=== PATIENT | female | born 1955 | race Caucasian/White ===

== ENCOUNTER 2016-11-24 17:38 | Inpatient (IN) | payer OTHER ==
[~2016-11-24] VITALS: Ht 152.4 cm; Wt 63.2 kg
[~2016-11-24 17:38] MED LIST: A/B OTIC15 ML; APAP/HYDROCODON1 T13 PO; ASPI-COR81 M3 PO; ASPIR-LOW81 M1; ATROVENT H0.017 MG/1 INH; ATRUD HHN; CIPRO500 MG PO; COL100 PO; COLACE100 MG PO; FLA500 PO; I5; ISORDIL TITRADOS5 MG PO; LAC PO; LEVAQUIN750 MG PO; NORCO1 TA1 PO; NORCO1 TA2 PO; SPIRIVA18 MC1 IH; SPIRIVA18 MC1 INH; TAZTIA XT120 M1; VENTOLIN H0.09 MG/A1 IH; VENTOLIN H0.09 MG/A1 INH; ZES5 PO
[2016-11-24 19:29] LABS: BASOPHIL % 1.1 % (0-2); PLATELET COUNT 228 x10^3mcL (130-400); RED CELL DISTRIBUTION WIDTH 12.6 % (11.5-14.5)
[2016-11-24 19:31] LABS: UA SPECIFIC GRAVITY <=1.005 (1.005-1.035); microscopic required? YES; urine erythrocyte 1+ (NEGATIVE)
[2016-11-24 19:43] LABS: AMPHETAMINE QUAL UR NONE DETECTED (NEG <=1000)
[2016-11-24 19:49] LABS: CALCIUM 7.9 mg/dL (8.5-10.1); CARBON DIOXIDE 21.6 mmol/L (21-32); CHLORIDE SERUM 90 mmol/L (98-107); CREATININE SERUM 0.3 mg/dL (0.6-1.0); GFR1 > 60 mL/min; GLUCOSE SERUM 78 mg/dL (74-106); POTASSIUM SERUM 3.9 mmol/L (3.5-5.1); SODIUM SERUM 125 mmol/L (136-145)
[2016-11-24 19:50] LABS: ALBUMIN 3.7 g/dL (3.4-5.0); ALKALINE PHOSPHATASE 112 U/L (46-116); ALT/SGPT 165 U/L (14-59); AMYLASE 40 U/L (25-115); AST/SGOT 173 U/L (15-37); BILIRUBIN TOTAL 0.33 mg/dL (0.20-1.00); CHOLESTEROL 244 mg/dL (<200); HDL CHOLESTEROL 146 mg/dL (40-60); LIPASE 197 IU/L (73-393); MAGNESIUM 1.8 mg/dL (1.8-2.4); TOTAL PROTEIN, SERUM 7.6 g/dL (6.4-8.2)
[2016-11-24] MEDS ORDERED: ASPIR 8181 MG PO (20:18)
[2016-11-24 21:08] LABS: FREE T4 0.68 ng/dL (0.76-1.46); FREE THYROXINE INDEX 1.8 ug/dL (1.4-4.5); T4(THYROXINE) 4.5 ug/dL (4.7-13.3)
[2016-11-24 21:09] LABS: T3 TOTAL 0.76 ng/mL
[2016-11-24 21:21] VITALS: BP 136/81
[2016-11-24 21:50] VITALS: BP 136/81
[2016-11-24] MEDS ORDERED: ZES10 PO (22:57)
[2016-11-24] MEDS ORDERED: ZES5 PO (22:57)
[2016-11-25 06:32] LABS: BASOPHIL % 0.5 % (0-2); PLATELET COUNT 214 x10^3mcL (130-400); RED CELL DISTRIBUTION WIDTH 12.6 % (11.5-14.5)
[2016-11-25 06:35] VITALS: BP 166/100
[2016-11-25 06:41] LABS: CALCIUM 8.6 mg/dL (8.5-10.1); CARBON DIOXIDE 27.8 mmol/L (21-32); CHLORIDE SERUM 96 mmol/L (98-107); CREATININE SERUM 0.5 mg/dL (0.6-1.0); GFR1 > 60 mL/min; GLUCOSE SERUM 88 mg/dL (74-106); POTASSIUM SERUM 4.4 mmol/L (3.5-5.1); SODIUM SERUM 133 mmol/L (136-145)
[2016-11-25 09:24] VITALS: BP 177/94
[2016-11-25 10:50] VITALS: BP 146/83
[2016-11-25 13:54] VITALS: BP 140/99
[2016-11-25 16:51] VITALS: BP 144/93
[2016-11-25 20:40] VITALS: BP 132/87
[2016-11-26 05:15] VITALS: BP 122/70
[2016-11-26 06:12] LABS: BASOPHIL % 0.5 % (0-2); PLATELET COUNT 208 x10^3mcL (130-400); RED CELL DISTRIBUTION WIDTH 12.9 % (11.5-14.5)
[2016-11-26 06:32] LABS: CALCIUM 9.2 mg/dL (8.5-10.1); CARBON DIOXIDE 26.9 mmol/L (21-32); CHLORIDE SERUM 96 mmol/L (98-107); CREATININE SERUM 0.4 mg/dL (0.6-1.0); GFR1 > 60 mL/min; GLUCOSE SERUM 95 mg/dL (74-106); MAGNESIUM 2.1 mg/dL (1.8-2.4); POTASSIUM SERUM 3.4 mmol/L (3.5-5.1); SODIUM SERUM 131 mmol/L (136-145)
[2016-11-26] MEDS ORDERED: FOL1 PO (09:12)
[2016-11-26] MEDS ORDERED: THI100 PO (09:12)
[2016-11-26] MEDS ORDERED: THERAGRAN-M1 TA4 PO (09:13)
[2016-11-26 09:19] VITALS: BP 157/94
[2016-11-26] MEDS ORDERED: CLEOCIN HCL300 MG PO (09:22)
[2016-11-26] MEDS ORDERED: LEVOFLOXACIN750 M1 PO (09:23)
[2016-11-26 10:07] VITALS: BP 157/94
== END 2016-11-26 12:30 | disposition home or self-care (01) | DRG 137 ==
LOC: ED 17:38 → DU 20:03
PROVIDERS: Emergency Medicine; ADMIT Family Medicine
DX: J69.0 Pneumonitis due to inhalation of food and vomit (principal); G92 Toxic encephalopathy; R45.851 Suicidal ideations; E87.1 Hypo-osmolality and hyponatremia; E87.8 Other disorders of electrolyte and fluid balance, not elsewhere classified; I10 Essential (primary) hypertension; F10.229 Alcohol dependence with intoxication, unspecified; S70.312A Abrasion, left thigh, initial encounter; S70.311A Abrasion, right thigh, initial encounter; S50.812A Abrasion of left forearm, initial encounter; S50.811A Abrasion of right forearm, initial encounter; J44.9 Chronic obstructive pulmonary disease, unspecified; E78.5 Hyperlipidemia, unspecified; E83.51 Hypocalcemia; R74.0 Nonspecific elevation of levels of transaminase and lactic acid dehydrogenase [LDH]; E86.0 Dehydration; I25.10 Atherosclerotic heart disease of native coronary artery without angina pectoris; F40.01 Agoraphobia with panic disorder; F14.90 Cocaine use, unspecified, uncomplicated; F17.210 Nicotine dependence, cigarettes, uncomplicated; F30.2 Manic episode, severe with psychotic symptoms; Y90.9 Presence of alcohol in blood, level not specified; J98.11 Atelectasis; Z53.29 Procedure and treatment not carried out because of patient's decision for other reasons; F10.129 Alcohol abuse with intoxication, unspecified; X83.8XXA Intentional self-harm by other specified means, initial encounter; Y93.89 Activity, other specified; Y92.018 Other place in single-family (private) house as the place of occurrence of the external cause; Z82.49 Family history of ischemic heart disease and other diseases of the circulatory system; Z80.9 Family history of malignant neoplasm, unspecified; Z68.27 Body mass index [BMI] 27.0-27.9, adult; Z88.8 Allergy status to other drugs, medicaments and biological substances
CPT/HCPCS: 83880; 84439; 99406; G0480; J0360; J1956; J2060; J2543; J7030; J7620; Q0092

== ENCOUNTER 2017-01-16 19:11 | Inpatient (IN) | payer OTHER ==
[~2017-01-16] VITALS: Ht 157.5 cm; Wt 65.8 kg
[~2017-01-16 19:11] MED LIST changes: +ASPIR 8181 MG PO; +CLEOCIN HCL300 MG PO; +FOL1 PO; +LEVOFLOXACIN750 M1 PO; +THERAGRAN-M1 TA4 PO; +THI100 PO; +ZES10 PO
[2017-01-16 20:18] LABS: BASOPHIL % 0.6 % (0-2); PLATELET COUNT 333 x10^3mcL (130-400); RED CELL DISTRIBUTION WIDTH 12.7 % (11.5-14.5)
[2017-01-16 20:32] LABS: ALBUMIN 3.4 g/dL (3.4-5.0); ALKALINE PHOSPHATASE 134 U/L (46-116); ALT/SGPT 38 U/L (14-59); AST/SGOT 41 U/L (15-37); BILIRUBIN TOTAL 0.28 mg/dL (0.20-1.00); CALCIUM 8.6 mg/dL (8.5-10.1); CARBON DIOXIDE 26.3 mmol/L (21-32); CHLORIDE SERUM 87 mmol/L (98-107); CHOLESTEROL 151 mg/dL (<200); CREATININE SERUM 0.3 mg/dL (0.6-1.0); GFR1 > 60 mL/min; GLUCOSE SERUM 97 mg/dL (74-106); POTASSIUM SERUM 3.4 mmol/L (3.5-5.1); TOTAL PROTEIN, SERUM 7.6 g/dL (6.4-8.2)
[2017-01-16 20:34] LABS: HDL CHOLESTEROL 98 mg/dL (40-60)
[2017-01-16 20:35] LABS: SODIUM SERUM 123 mmol/L (136-145)
[2017-01-16 20:55] LABS: UA SPECIFIC GRAVITY <=1.005 (1.005-1.035); microscopic required? YES; urine erythrocyte TRACE (NEGATIVE)
[2017-01-16 21:36] LABS: MAGNESIUM 1.6 mg/dL (1.8-2.4); PHOSPHOROUS 3.6 mg/dL (2.5-4.9)
[2017-01-16 22:05] VITALS: BP 104/62
[2017-01-16 22:07] VITALS: BP 107/62
[2017-01-16 22:14] LABS: AMPHETAMINE QUAL UR NONE DETECTED (NEG <=1000)
[2017-01-16 23:38] VITALS: BP 107/62
[2017-01-17 05:12] LABS: PLATELET COUNT 326 x10^3mcL (130-400); RED CELL DISTRIBUTION WIDTH 12.6 % (11.5-14.5)
[2017-01-17 05:16] LABS: CALCIUM 8.1 mg/dL (8.5-10.1); CARBON DIOXIDE 23.7 mmol/L (21-32); CHLORIDE SERUM 93 mmol/L (98-107); CREATININE SERUM 0.3 mg/dL (0.6-1.0); GFR1 > 60 mL/min; GLUCOSE SERUM 127 mg/dL (74-106); MAGNESIUM 1.5 mg/dL (1.8-2.4); POTASSIUM SERUM 4.2 mmol/L (3.5-5.1); SODIUM SERUM 129 mmol/L (136-145)
[2017-01-17 05:17] LABS: BASOPHIL % 0 % (0-2)
[2017-01-17 06:05] VITALS: BP 115/62
[2017-01-17 07:20] VITALS: BP 143/79
[2017-01-17 14:15] VITALS: BP 144/78
[2017-01-17 18:37] VITALS: BP 159/69
[2017-01-17 21:09] VITALS: BP 148/79
[2017-01-18 04:41] VITALS: BP 140/75
[2017-01-18 06:20] LABS: BASOPHIL % 0.3 % (0-2); CALCIUM 8.4 mg/dL (8.5-10.1); CARBON DIOXIDE 29.5 mmol/L (21-32); CHLORIDE SERUM 98 mmol/L (98-107); CREATININE SERUM 0.3 mg/dL (0.6-1.0); GFR1 > 60 mL/min; GLUCOSE SERUM 93 mg/dL (74-106); MAGNESIUM 1.8 mg/dL (1.8-2.4); PLATELET COUNT 331 x10^3mcL (130-400); POTASSIUM SERUM 3.6 mmol/L (3.5-5.1); RED CELL DISTRIBUTION WIDTH 13.1 % (11.5-14.5); SODIUM SERUM 134 mmol/L (136-145)
[2017-01-18 10:25] VITALS: BP 139/71
[2017-01-18 13:47] VITALS: BP 148/83
[2017-01-18 16:38] VITALS: BP 158/85
[2017-01-18 21:39] VITALS: BP 146/62
[2017-01-18 21:54] VITALS: BP 146/62
[2017-01-19 07:32] LABS: CALCIUM 9.1 mg/dL (8.5-10.1); CARBON DIOXIDE 30.1 mmol/L (21-32); CHLORIDE SERUM 94 mmol/L (98-107); CREATININE SERUM 0.4 mg/dL (0.6-1.0); GFR1 > 60 mL/min; GLUCOSE SERUM 96 mg/dL (74-106); POTASSIUM SERUM 3.6 mmol/L (3.5-5.1); SODIUM SERUM 134 mmol/L (136-145)
[2017-01-19 08:43] VITALS: BP 149/95
[2017-01-19] MEDS ORDERED: LEVOFLOXACIN500 M1 PO (09:46)
[2017-01-19] MEDS ORDERED: CLINDAMYCIN HC150 MG PO (09:47)
[2017-01-19] MEDS ORDERED: PHECLUD PO (09:50)
[2017-01-19] MEDS ORDERED: LAC PO (09:59)
[2017-01-19] MEDS ORDERED: METOPROLOL TART25 M1 PO ×2 (09:59→10:21)
[2017-01-19 10:13] VITALS: BP 149/95
== END 2017-01-19 12:28 | disposition home or self-care (01) | DRG 140 ==
LOC: ED 19:11 → DU 21:00
PROVIDERS: Emergency Medicine; ADMIT Family Medicine
DX: J44.1 Chronic obstructive pulmonary disease with (acute) exacerbation (principal); E87.8 Other disorders of electrolyte and fluid balance, not elsewhere classified; E87.1 Hypo-osmolality and hyponatremia; F10.229 Alcohol dependence with intoxication, unspecified; I10 Essential (primary) hypertension; I25.10 Atherosclerotic heart disease of native coronary artery without angina pectoris; E87.6 Hypokalemia; E83.42 Hypomagnesemia; Z68.26 Body mass index [BMI] 26.0-26.9, adult; F17.210 Nicotine dependence, cigarettes, uncomplicated; M94.0 Chondrocostal junction syndrome [Tietze]
CPT/HCPCS: 83880; 85378; 99406; G0480; J0456; J0696; J2543; J2930; J3475; J7030; J7050; J7613; J7620; J7626; J7644

== ENCOUNTER 2017-01-25 21:42 | Emergency (ER) | payer OTHER ==
[~2017-01-25] VITALS: Ht 157.5 cm; Wt 58.0 kg
[~2017-01-25 21:42] MED LIST changes: +CLINDAMYCIN HC150 MG PO; +LEVOFLOXACIN500 M1 PO; +METOPROLOL TART25 M1 PO; +PHECLUD PO
[2017-01-25 23:00] VITALS: BP 127/53
[2017-01-25 23:09] LABS: BASOPHIL % 0.5 % (0-2); PLATELET COUNT 385 x10^3mcL (130-400); RED CELL DISTRIBUTION WIDTH 13.2 % (11.5-14.5)
[2017-01-25 23:10] LABS: CALCIUM 8.8 mg/dL (8.5-10.1); CARBON DIOXIDE 28.1 mmol/L (21-32); CHLORIDE SERUM 91 mmol/L (98-107); CREATININE SERUM 0.4 mg/dL (0.6-1.0); GFR1 > 60 mL/min; GLUCOSE SERUM 91 mg/dL (74-106); POTASSIUM SERUM 3.8 mmol/L (3.5-5.1); SODIUM SERUM 128 mmol/L (136-145)
[2017-01-25 23:16] LABS: ALBUMIN 3.5 g/dL (3.4-5.0); ALKALINE PHOSPHATASE 107 U/L (46-116); ALT/SGPT 71 U/L (14-59); AST/SGOT 69 U/L (15-37); BILIRUBIN TOTAL 0.24 mg/dL (0.20-1.00); LIPASE 131 IU/L (73-393); TOTAL PROTEIN, SERUM 7.6 g/dL (6.4-8.2); TRIGLYCERIDES 53 mg/dL (<150)
[2017-01-25 23:20] LABS: CHOLESTEROL 223 mg/dL (<200); CHOLESTEROL/HDL RATIO 2.1; HDL CHOLESTEROL 105 mg/dL (40-60)
[2017-01-25 23:51] LABS: FREE T4 0.81 ng/dL (0.76-1.46); FREE THYROXINE INDEX 2.2 ug/dL (1.4-4.5); T4(THYROXINE) 5.7 ug/dL (4.7-13.3)
[2017-01-26 00:04] LABS: T3 TOTAL 0.82 ng/mL
[2017-01-26 00:12] LABS: UA SPECIFIC GRAVITY <=1.005 (1.005-1.035); microscopic required? YES; urine erythrocyte TRACE (NEGATIVE)
[2017-01-26 00:31] LABS: AMPHETAMINE QUAL UR NONE DETECTED (NEG <=1000)
[2017-01-26 02:16] LABS: MAGNESIUM 1.6 mg/dL (1.8-2.4)
== END 2017-01-26 02:22 | disposition left against medical advice (07) ==
LOC: ED 21:42 → DU 01-26 01:16 → ED 01-26 01:16
PROVIDERS: Family Medicine Sports Medicine; Specialist
DX: S09.90XA Unspecified injury of head, initial encounter (principal); F10.129 Alcohol abuse with intoxication, unspecified; I10 Essential (primary) hypertension; J44.9 Chronic obstructive pulmonary disease, unspecified; Z88.8 Allergy status to other drugs, medicaments and biological substances; W17.89XA Other fall from one level to another, initial encounter; Y93.89 Activity, other specified; Y92.89 Other specified places as the place of occurrence of the external cause; Y99.8 Other external cause status
CPT/HCPCS: 36415; 83880; 84439; G0480; J7030

== ENCOUNTER 2017-02-10 21:06 | Emergency (ER) | payer OTHER ==
[~2017-02-10] VITALS: Ht 160 cm; Wt 66.7 kg
[2017-02-10 23:06] VITALS: BP 132/86
== END 2017-02-10 23:07 | disposition home or self-care (01) ==
LOC: ED 21:06
DX: F10.129 Alcohol abuse with intoxication, unspecified (principal); R07.89 Other chest pain; J44.9 Chronic obstructive pulmonary disease, unspecified; I10 Essential (primary) hypertension; Z88.8 Allergy status to other drugs, medicaments and biological substances
CPT/HCPCS: J1885

== ENCOUNTER 2017-02-18 15:23 | Inpatient (IN) | payer OTHER ==
[~2017-02-18] VITALS: Ht 157.5 cm; Wt 59.5 kg
[2017-02-18 16:53] LABS: BASOPHIL % 0.2 % (0-2); PLATELET COUNT 250 x10^3mcL (130-400); RED CELL DISTRIBUTION WIDTH 12.9 % (11.5-14.5)
[2017-02-18 17:07] LABS: CALCIUM 9.5 mg/dL (8.5-10.1); CARBON DIOXIDE 24.7 mmol/L (21-32); CHLORIDE SERUM 95 mmol/L (98-107); CREATININE SERUM 0.8 mg/dL (0.6-1.0); GFR1 > 60 mL/min; GLUCOSE SERUM 115 mg/dL (74-106); POTASSIUM SERUM 3.1 mmol/L (3.5-5.1); SODIUM SERUM 129 mmol/L (136-145)
[2017-02-18 17:15] LABS: ALKALINE PHOSPHATASE 112 U/L (46-116); ALT/SGPT 52 U/L (14-59); AMYLASE 44 U/L (25-115); AST/SGOT 50 U/L (15-37); BILIRUBIN TOTAL 0.76 mg/dL (0.20-1.00); LIPASE 123 IU/L (73-393)
[2017-02-18 17:21] LABS: TOTAL PROTEIN, SERUM 8.3 g/dL (6.4-8.2)
[2017-02-18 18:31] LABS: microscopic required? YES; urine erythrocyte NEGATIVE (NEGATIVE)
[2017-02-18 20:16] LABS: CHOLESTEROL/HDL RATIO 1.8
[2017-02-18 20:17] LABS: T3 TOTAL 1.15 ng/mL
[2017-02-18 20:22] LABS: FREE T4 0.97 ng/dL (0.76-1.46); T4(THYROXINE) 5.8 ug/dL (4.7-13.3)
[2017-02-18 20:56] VITALS: BP 126/73
[2017-02-18 21:45] VITALS: BP 126/73
[2017-02-19 05:54] VITALS: BP 126/73
[2017-02-19 06:03] VITALS: BP 144/91
[2017-02-19 06:57] LABS: BASOPHIL % 0.6 % (0-2); PLATELET COUNT 208 x10^3mcL (130-400)
[2017-02-19 07:06] LABS: CALCIUM 8.3 mg/dL (8.5-10.1); CARBON DIOXIDE 27.2 mmol/L (21-32); CHLORIDE SERUM 99 mmol/L (98-107); CREATININE SERUM 0.4 mg/dL (0.6-1.0); GFR1 > 60 mL/min; GLUCOSE SERUM 70 mg/dL (74-106); MAGNESIUM 1.7 mg/dL (1.8-2.4); POTASSIUM SERUM 3.5 mmol/L (3.5-5.1); SODIUM SERUM 132 mmol/L (136-145)
[2017-02-19 09:30] VITALS: BP 126/68
[2017-02-19 13:20] VITALS: BP 128/66
[2017-02-19 18:40] VITALS: BP 161/90
[2017-02-19 22:01] VITALS: BP 172/78
[2017-02-20 06:04] VITALS: BP 105/68
[2017-02-20 06:53] LABS: AMPHETAMINE QUAL UR NONE DETECTED (NEG <=1000)
[2017-02-20 07:20] LABS: BASOPHIL % 0.9 % (0-2); PLATELET COUNT 240 x10^3mcL (130-400); RED CELL DISTRIBUTION WIDTH 12.8 % (11.5-14.5)
[2017-02-20 07:27] LABS: CALCIUM 8.7 mg/dL (8.5-10.1); CARBON DIOXIDE 27.5 mmol/L (21-32); CHLORIDE SERUM 97 mmol/L (98-107); CREATININE SERUM 0.4 mg/dL (0.6-1.0); GFR1 > 60 mL/min; GLUCOSE SERUM 91 mg/dL (74-106); MAGNESIUM 1.5 mg/dL (1.8-2.4); POTASSIUM SERUM 3.3 mmol/L (3.5-5.1); SODIUM SERUM 133 mmol/L (136-145)
[2017-02-20 09:29] VITALS: BP 149/93
[2017-02-20 16:09] VITALS: BP 132/97
[2017-02-20 21:36] VITALS: BP 149/99
[2017-02-21 06:30] LABS: BASOPHIL % 1.2 % (0-2); PLATELET COUNT 280 x10^3mcL (130-400); RED CELL DISTRIBUTION WIDTH 12.6 % (11.5-14.5)
[2017-02-21 06:38] VITALS: BP 151/79
[2017-02-21 06:47] LABS: CALCIUM 8.8 mg/dL (8.5-10.1); CARBON DIOXIDE 29.9 mmol/L (21-32); CHLORIDE SERUM 96 mmol/L (98-107); CREATININE SERUM 0.4 mg/dL (0.6-1.0); GFR1 > 60 mL/min; GLUCOSE SERUM 86 mg/dL (74-106); MAGNESIUM 1.7 mg/dL (1.8-2.4); POTASSIUM SERUM 3.4 mmol/L (3.5-5.1); SODIUM SERUM 132 mmol/L (136-145)
[2017-02-21 10:12] VITALS: BP 124/81
[2017-02-21] MEDS ORDERED: THI100 PO (11:31)
[2017-02-21] MEDS ORDERED: THERAGRAN-M1 TA4 PO (11:32)
[2017-02-21] MEDS ORDERED: FOL1 PO (11:32)
[2017-02-21] MEDS ORDERED: CIPRO500 MG PO (11:34)
[2017-02-21] MEDS ORDERED: LAC PO (11:34)
[2017-02-21] MEDS ORDERED: METP PO (11:35)
[2017-02-21 11:57] VITALS: BP 124/81
[2017-02-21 13:30] VITALS: BP 148/82
== END 2017-02-21 13:57 | disposition home or self-care (01) | DRG 244 ==
LOC: ED 15:23 → DU 19:24 → MU 19:24 → DU 20:48 → MU 02-19 10:38
PROVIDERS: Emergency Medicine; Family Medicine; ADMIT Family Medicine
DX: K57.33 Diverticulitis of large intestine without perforation or abscess with bleeding (principal); J18.9 Pneumonia, unspecified organism; E87.1 Hypo-osmolality and hyponatremia; J44.0 Chronic obstructive pulmonary disease with (acute) lower respiratory infection; N28.1 Cyst of kidney, acquired; J45.909 Unspecified asthma, uncomplicated; I10 Essential (primary) hypertension; F17.210 Nicotine dependence, cigarettes, uncomplicated; E87.6 Hypokalemia; F31.9 Bipolar disorder, unspecified; F10.20 Alcohol dependence, uncomplicated; N39.0 Urinary tract infection, site not specified; J44.9 Chronic obstructive pulmonary disease, unspecified
CPT/HCPCS: 83880; 84439; 94150; 99406; G0480; J1956; J2270; J2405; J2543; J3010; J3475; J3480; J3490; J7030; J7040; J7620; Q0092; Q9967

== ENCOUNTER 2017-03-09 22:59 | Inpatient (IN) | payer OTHER ==
[~2017-03-09] VITALS: Ht 157.5 cm; Wt 59.1 kg
[~2017-03-09 22:59] MED LIST changes: +METP PO
--- NOTE | 2017-03-09 23:18 | NUR ---
PATIENT WAS BROUGHT IN BY EMS WITH COMPLAINT OF PAIN ON THE LEFT UPPER BACK. PATIENT EXPRESS SHE HAS LUNG PAIN. PATIENT SEEN MOVING ALL EXTREMITIES.
[2017-03-10 00:23] LABS: BASOPHIL % 0.4 % (0-2); PLATELET COUNT 332 x10^3mcL (130-400); RED CELL DISTRIBUTION WIDTH 12.9 % (11.5-14.5)
[2017-03-10 00:45] LABS: ALBUMIN 3.8 g/dL (3.4-5.0); ALKALINE PHOSPHATASE 105 U/L (46-116); ALT/SGPT 41 U/L (14-59); AST/SGOT 44 U/L (15-37); BILIRUBIN TOTAL 0.4 mg/dL (0.20-1.00); CALCIUM 8.7 mg/dL (8.5-10.1); CHLORIDE SERUM 86 mmol/L (98-107); CREATININE SERUM 0.4 mg/dL (0.6-1.0); GFR1 > 60 mL/min; GLUCOSE SERUM 86 mg/dL (74-106); PHOSPHOROUS 3.7 mg/dL (2.5-4.9); POTASSIUM SERUM 4.2 mmol/L (3.5-5.1); TOTAL PROTEIN, SERUM 7.4 g/dL (6.4-8.2); URIC ACID 3.1 mg/dL (2.6-6.0)
--- NOTE | 2017-03-10 00:48 | NUR ---
PATIENT IS SLEEPING. NO DISTRESS.
[2017-03-10 00:49] LABS: CHOLESTEROL 237 mg/dL (<200); HDL CHOLESTEROL 142 mg/dL (40-60)
[2017-03-10 00:50] LABS: SODIUM SERUM 121 mmol/L (136-145)
[2017-03-10 02:21] LABS: MAGNESIUM 1.8 mg/dL (1.8-2.4)
[2017-03-10 02:22] LABS: CHOLESTEROL/HDL RATIO 1.8
--- NOTE | 2017-03-10 02:23 | NUR ---
ADMISSION REPORT GIVEN TO BRYAN CONTRERAS EXT [id number] TO CONTINUE CARE.
[2017-03-10 02:24] LABS: FREE T4 0.84 ng/dL (0.76-1.46)
[2017-03-10 02:25] LABS: FREE THYROXINE INDEX 1.6 ug/dL (1.4-4.5); T4(THYROXINE) 4.2 ug/dL (4.7-13.3)
--- NOTE | 2017-03-10 02:34 | NUR ---
IV BOLUS OF NS INFUSING AT THIS TIME. PT IV SITE PATENT WITH NO SX OF INFILTRATION NOTED.
[2017-03-10 02:56] LABS: T3 TOTAL 0.85 ng/mL
[2017-03-10 03:56] VITALS: BP 98/79
--- NOTE | 2017-03-10 04:16 | NUR ---
ADMITTED A 61 YEARS OLD FEMALE AWAKE, ALERT AND ORIENTED BROUGHT BY ER NURSE VIA GURNEY C/O LOW BACKAPIN, GENRALIZED BODY WEAKNESS AND PAIN TO LEFT CHESTWALL. KEPT IN COMFORT AND ORIENTED TO ROOM AND DEVICES. TELE# 30 NSR ON MONITOR. COARSE CRACKLES NOTED SATTING AT 98% RA. IV TO RH INTACT AND INFUSING WELL. WITH ADMISSION ORDERS FROM DR VERMA AND TO CARRY OUT. WILL CONTINUE TO MONITOR. CALL LIGHT WITHIN REACH.
[2017-03-10 05:17] VITALS: BP 98/79
--- NOTE | 2017-03-10 05:18 | NUR ---
C/O BACKPAIN MEDICATED WITH NORCO 1 TAB PO PRESCRIBED.
--- NOTE | 2017-03-10 07:13 | NUR ---
PT RECEIVED DURING CHANGE OF SHIFT, A/OX4, TELE 30, NSR, DENIES CHEST PAIN, PULSES PRESENT, NO EDEMA NOTED, DENIES SOB ON RA, BREATHING SHALLOW, COARSE CRACKLES/RONCHI AUSCULATED BILATERALLY, BOWEL SOUNDS ACTIVE, ABLE TO VOID, SPECIMEN CUP AT BEDSIDE, MILD GENERALIZED WEAKNESS, AMBULATORY, SKIN WARM/DRY/INTACT, DENIES PAIN AT THIS TIME, IV TO RIGHT HAND INFUSING NS AT 100ML/HR, CALL LIGHT WITHIN REACH, WILL CONTINUE TO MONITOR.
--- NOTE | 2017-03-10 08:26 | NUR ---
PT DENIES PAIN, C/O SOB, RT AWARE, CALL LIGHT WITHIN REACH, WILL CONTINUE TO MONITOR.
[2017-03-10 08:28] LABS: CALCIUM 8.4 mg/dL (8.5-10.1); CARBON DIOXIDE 26.1 mmol/L (21-32); CHLORIDE SERUM 97 mmol/L (98-107); CREATININE SERUM 0.3 mg/dL (0.6-1.0); GFR1 > 60 mL/min; GLUCOSE SERUM 71 mg/dL (74-106); POTASSIUM SERUM 4.2 mmol/L (3.5-5.1); SODIUM SERUM 131 mmol/L (136-145)
[2017-03-10 09:12] VITALS: BP 137/80
--- NOTE | 2017-03-10 09:12 | NUR ---
DR. MORTENSEN AND RESIDENTS MAKING ROUNDS, PLAN OF CARE DISCUSSED.
--- NOTE | 2017-03-10 10:09 | NUR ---
PT ASLEEP, NO INDICATION OF PAIN, BREATHING EVEN AND UNLABORED, CALL LIGHT WITHIN REACH, WILL CONTINUE TO MONITOR.
--- NOTE | 2017-03-10 11:09 | NUR ---
PT ASLEEP, NO INDICATION OF PAIN, BREATHING EVEN AND UNLABORED, CALL LIGHT WITHIN REACH, WILL CONTINUE TO MONITOR.
--- NOTE | 2017-03-10 12:10 | NUR ---
PT ASLEEP, NO INDICATION OF PAIN, BREATHING EVEN AND UNLABORED, CALL LIGHT WITHIN REACH, WILL CONTINUE TO MONITOR.
--- NOTE | 2017-03-10 13:21 | NUR ---
PT AROUSED FROM SLEEP, DENIES SOB, DENIES PAIN, CALL LIGHT WITHIN REACH, WILL CONTINUE TO MONITOR.
[2017-03-10 13:52] VITALS: BP 156/85
--- NOTE | 2017-03-10 14:20 | NUR ---
PT ASLEEP, NO INDICATION OF PAIN, BREATHING EVEN AND UNLABORED, CALL LIGHT WITHIN REACH, WILL CONTINUE TO MONITOR.
--- NOTE | 2017-03-10 15:07 | NUR ---
PT ASLEEP, NO INDICATION OF PAIN, BREATHING EVEN AND UNLABORED, CALL LIGHT WITHIN REACH, WILL CONTINUE TO MONITOR.
--- NOTE | 2017-03-10 16:25 | NUR ---
PT ASLEEP, NO INDICATION OF PAIN, BREATHING EVEN AND UNLABORED, CALL LIGHT WITHIN REACH, WILL CONTINUE TO MONITOR.
[2017-03-10 16:49] VITALS: BP 151/83
--- NOTE | 2017-03-10 17:14 | NUR ---
PT ASLEEP, NO INDICATION OF PAIN, BREATHING EVEN AND UNLABORED, CALL LIGHT WITHIN REACH, WILL CONTINUE TO MONITOR.
--- NOTE | 2017-03-10 18:32 | NUR ---
PT DENIES SOB, DENIES PAIN, DR. WASSERMAN AT BEDSIDE ASSESSING PT, CALL LIGHT WITHIN REACH, WILL ENDORSE PT TO NEXT SHIFT.
--- NOTE | 2017-03-10 20:29 | NUR ---
PT CURRENTLY RESTING IN BED, NO ACUTE DISTRESS. A/O X4. TELE #30 SHOWING SINUS RHYTHM, DENIES CHEST PAIN. PULSES PALPABLE IN ALL EXTREMITIES, NO EDEMA NOTED. LUNG SOUNDS COARSE CRACKLES BILATERALLY, NO RESPIRATORY DISTRESS NOTED. BOWEL SOUNDS ACTIVE, LAST BM 03/10/17. VOIDING WELL. MILD GENERALIZED WEAKNESS NOTED, AMBULATORY. SKIN INTACT. DENIES PAIN AT THIS TIME. IV PATENT AND INTACT. BED IN LOWEST POSITION, SIDE RAILS UP X2, SCDS IN PLACE, CALL LIGHT WITHIN REACH. WILL CONTINUE TO MONITOR.
[2017-03-10 21:56] VITALS: BP 134/68
--- NOTE | 2017-03-11 01:09 | NUR ---
PT CURRENTLY RESTING IN BED, NO ACUTE DISTRESS. WILL CONTINUE TO MONITOR.
[2017-03-11 02:11] LABS: UA SPECIFIC GRAVITY <=1.005 (1.005-1.035); microscopic required? YES; urine erythrocyte TRACE (NEGATIVE)
[2017-03-11 02:17] LABS: AMPHETAMINE QUAL UR NONE DETECTED (NEG <=1000)
[2017-03-11 05:59] VITALS: BP 147/91
[2017-03-11 06:40] LABS: CALCIUM 9.3 mg/dL (8.5-10.1); CARBON DIOXIDE 26.2 mmol/L (21-32); CHLORIDE SERUM 95 mmol/L (98-107); CREATININE SERUM 0.4 mg/dL (0.6-1.0); GFR1 > 60 mL/min; GLUCOSE SERUM 156 mg/dL (74-106); POTASSIUM SERUM 3.5 mmol/L (3.5-5.1); SODIUM SERUM 132 mmol/L (136-145)
--- NOTE | 2017-03-11 06:42 | NUR ---
PT SLEPT PERIODICALLY THROUGHOUT NIGHT, NO ACUTE DISTRESS. ALL NEEDS MET AND ATTENDED TO. NO SIGNIFICANT CHANGES. IV PATENT AND INTACT. BED IN LOWEST POSITION, SIDE RAILS UP X2, SCDS IN PLACE, CALL LIGHT WITHIN REACH. WILL ENDORSE CARE TO ONCOMING NURSE.
--- NOTE | 2017-03-11 07:41 | NUR ---
PT RECEIVED DURING CHANGE OF SHIFT, ASLEEP BUT AROUSABLE, SZ PRECAUTIONS IN PLACE, TELE 30, NSR, PULSES PRESENT, COARSE/CRACKLES ON 2L NC, BREATHING EVEN AND UNLABORED, BOWEL SOUNDS ACTIVE, ABLE TO VOID, BRP, MILD GENERALIZED WEAKNESS, AMBULATORY, SKIN WARM/DRY/INTACT, NO INDICATION OF PAIN, IV TO RIGHT HAND INFUSING NS AT 100ML/HR, IV WNL, CALL LIGHT WITHIN REACH, WILL CONTINUE TO MONITOR.
--- NOTE | 2017-03-11 08:06 | NUR ---
PT AROUSED FROM SLEEP, DENIES SOB, DENIES PAIN, BP ELEVATED, WILL ADMINISTER BP MEDS SCHEDULED.
--- NOTE | 2017-03-11 09:12 | NUR ---
PT DENIES SOB, DENIES PAIN, MEDICATIONS GIVEN, CALL LIGHT WITHIN REACH, WILL CONTINUE TO MONITOR.
[2017-03-11 09:22] VITALS: BP 185/112
--- NOTE | 2017-03-11 10:47 | NUR ---
DR. SIN AND RESIDENTS MAKING ROUNDS, PLAN OF CARE DISCUSSED.
--- NOTE | 2017-03-11 11:17 | NUR ---
PT DENIES SOB, DENIES PAIN, C/O FEELING "SHAKEY", PT ASSESSED, SLIGHT TREMORS NOTED IN HANDS, WILL MEDICATE PER EMAR, CALL LIGHT WITHIN REACH, WILL CONTINUE TO MONITOR.
--- NOTE | 2017-03-11 12:15 | NUR ---
PT ASLEEP, NO INDICATION OF PAIN, BREATHING EVEN AND UNLABORED, CALL LIGHT WITHIN REACH, WILL CONTINUE TO MONITOR.
--- NOTE | 2017-03-11 13:15 | NUR ---
PT DENIES SOB, DENIES PAIN, RECEIVED SCHEDULED MEDICATION, CALL LIGHT WITHIN REACH, WILL CONTINUE TO MONITOR.
[2017-03-11 13:34] VITALS: BP 165/69
--- NOTE | 2017-03-11 14:10 | NUR ---
PT ASLEEP, NO INDICATION OF PAIN, BREATHING EVEN AND UNLABORED, CALL LIGHT WITHIN REACH, WILL CONTINUE TO MONITOR.
--- NOTE | 2017-03-11 15:17 | NUR ---
PT ASLEEP, NO INDICATION OF PAIN, BREATHING EVEN AND UNLABORED, CALL LIGHT WITHIN REACH, WILL CONTINUE TO MONITOR.
--- NOTE | 2017-03-11 16:20 | NUR ---
PT ASLEEP, NO INDICATION OF PAIN, BREATHING EVEN AND UNLABORED, WILL CONTINUE TO MONITOR.
[2017-03-11 17:04] VITALS: BP 128/71
--- NOTE | 2017-03-11 17:23 | NUR ---
PT DENIES SOB, DENIES PAIN, STATED "I DON'T LIKE RICE AND PORK, I HOPE THEY DON'T BRING ME THAT FOR DINNER."
--- NOTE | 2017-03-11 18:15 | NUR ---
PT DENIES SOB, DENIES PAIN, SLIGHT HAND TREMORS NOTED, WILL MEDICATE PER EMAR.
--- NOTE | 2017-03-11 19:25 | NUR ---
RECEIVED PT FROM PREVIOUS SHIFT NURSE. PT AOX4. TELE #30, NSR. DENIES CP/PRESSURE. PULSES PRESENT, NO EDEMA NOTED. COARSE CRACKLES HEARD IN LUNGS UPON AUSCULTATION, PT SWITCHES FROM RA TO 2L NC. BOWEL SOUNDS ACTIVE. VOISD FREELY, BRP. GENERALIZED WEAKNESS, AMBULATORY. SKIN INTACT. IV IN R. HAND, INTACT AND PATENT. BED IN LOWEST POSITION. CALL LIGHT WITHIN REACH. WILL CONTINUE TO MONITOR.
[2017-03-11 20:51] VITALS: BP 141/79
--- NOTE | 2017-03-12 02:49 | NUR ---
PT RESTING IN BED. RR EVEN AND UNLABORED. NO ACUTE DISTRESS NOTED. CALL LIGHT WITHIN REACH. BED IN LOWEST POSITION. WILL CONTINUE TO MONITOR.
[2017-03-12 05:53] VITALS: BP 157/91
[2017-03-12 06:30] LABS: BASOPHIL % 0.1 % (0-2); CALCIUM 9.1 mg/dL (8.5-10.1); CARBON DIOXIDE 29.1 mmol/L (21-32); CHLORIDE SERUM 96 mmol/L (98-107); CREATININE SERUM 0.3 mg/dL (0.6-1.0); GFR1 > 60 mL/min; GLUCOSE SERUM 141 mg/dL (74-106); MAGNESIUM 1.7 mg/dL (1.8-2.4); PLATELET COUNT 254 x10^3mcL (130-400); POTASSIUM SERUM 3.8 mmol/L (3.5-5.1); RED CELL DISTRIBUTION WIDTH 12.9 % (11.5-14.5); SODIUM SERUM 132 mmol/L (136-145)
--- NOTE | 2017-03-12 07:26 | NUR ---
PT RECEIVED DURING CHANGE OF SHIFT, ASLEEP BUT AROUSABLE, SZ PRECAUTIONS IN PLACE, TELE 30, NSR, PULSES PRESENT, LUNGS COARSE/CRACKLES ON RA, BREATHING EVEN AND UNLABORED, BOWEL SOUNDS ACTIVE, LBM 03/11/17, BRP, MILD GENERALIZED WEAKNESS, AMBULATORY, SKIN WARM/DRY/INTACT, NO INDICATION OF PAIN, IV TO LEFT WRIST INFUSING NS AT 100ML/HR, CALL LIGHT WITHIN REACH, WILL CONTINUE TO MONITOR.
--- NOTE | 2017-03-12 08:11 | NUR ---
PT AROUSED FROM SLEEP, DENIES SOB, DENIES PAIN, MEDS GIVEN, CALL LIGHT WITHIN REACH, WILL CONTINUE TO MONITOR.
--- NOTE | 2017-03-12 09:04 | NUR ---
PT ASLEEP, NO INDICATION OF PAIN, BREATHING EVEN AND UNLABORED, CALL LIGHT WITHIN REACH, WILL CONTINUE TO MONITOR.
[2017-03-12 10:00] VITALS: BP 139/94
--- NOTE | 2017-03-12 10:25 | NUR ---
PT DENIES SOB, DENIES PAIN, CALL LIGHT WITHIN REACH, WILL CONTINUE TO MONITOR.
--- NOTE | 2017-03-12 11:38 | NUR ---
PT AROUSED FROM SLEEP, SPEAKING TO DAUGHTER ON PHONE, CALL LIGHT WITHIN REACH, WILL CONTINUE TO MONITOR.
[2017-03-12] MEDS ORDERED: ATIVAN1 MG PO (11:54)
[2017-03-12 12:05] VITALS: BP 139/94
--- NOTE | 2017-03-12 12:14 | NUR ---
PT AROUSED FROM SLEEP, DENIES SOB, DENIES PAIN, RECEIVED MAG-OX, CALL LIGHT WITHIN REACH, WILL CONTINUE TO MONITOR.
--- NOTE | 2017-03-12 13:12 | NUR ---
PT RECEIVED DISCHARGE INSTRUCTIONS, VERBALIZED UNDERSTANDING, ALL QUESTIONS ANSWERED, SCRIPTS GIVEN, E-SCRIPTS EXPLAINED, NEED TO ARRANGE APPOINTMENT EXPLAINED, PT ESCORTED DOWNSTAIRS VIA WHEELCHAIR BY SEAN OG.
== END 2017-03-12 13:15 | disposition home or self-care (01) | DRG 775 ==
LOC: ED 22:59 → DU 03-10 01:15
PROVIDERS: Emergency Medicine; ADMIT Family Medicine Sports Medicine
DX: F10.20 Alcohol dependence, uncomplicated (principal); G92 Toxic encephalopathy; J18.9 Pneumonia, unspecified organism; M94.0 Chondrocostal junction syndrome [Tietze]; E87.1 Hypo-osmolality and hyponatremia; J44.9 Chronic obstructive pulmonary disease, unspecified; K57.30 Diverticulosis of large intestine without perforation or abscess without bleeding; J98.11 Atelectasis; N28.1 Cyst of kidney, acquired; Z68.23 Body mass index [BMI] 23.0-23.9, adult; F17.210 Nicotine dependence, cigarettes, uncomplicated
CPT/HCPCS: 83880; 84439; G0480; J1956; J2060; J2920; J7030; J7620; J7626; J7633

== ENCOUNTER 2017-04-14 19:18 | Emergency (ER) | payer OTHER ==
[~2017-04-14] VITALS: Ht 160 cm; Wt 55.8 kg
[~2017-04-14 19:18] MED LIST changes: +ATIVAN1 MG PO
[2017-04-14 19:27] VITALS: Ht 160 cm; Wt 55.8 kg
[2017-04-14 20:44] LABS: PLATELET COUNT 307 x10^3mcL (130-400); RED CELL DISTRIBUTION WIDTH 12.3 % (11.5-14.5)
[2017-04-14 20:46] LABS: CALCIUM 9.5 mg/dL (8.5-10.1); CHLORIDE SERUM 94 mmol/L (98-107); CREATININE SERUM 0.5 mg/dL (0.6-1.0); GFR1 > 60 mL/min; GLUCOSE SERUM 126 mg/dL (74-106); SODIUM SERUM 131 mmol/L (136-145)
[2017-04-14 20:47] LABS: BASOPHIL % 0 % (0-2)
[2017-04-14 20:51] LABS: ALKALINE PHOSPHATASE 83 U/L (46-116); ALT/SGPT 30 U/L (14-59); AST/SGOT 24 U/L (15-37); BILIRUBIN TOTAL 0.5 mg/dL (0.20-1.00); TOTAL PROTEIN, SERUM 8.2 g/dL (6.4-8.2)
[2017-04-14 21:15] VITALS: BP 127/71
== END 2017-04-14 21:15 | disposition home or self-care (01) ==
LOC: ED 19:18
PROVIDERS: Emergency Medicine
DX: R10.9 Unspecified abdominal pain (principal); R51 Headache; R11.0 Nausea; J44.9 Chronic obstructive pulmonary disease, unspecified; I10 Essential (primary) hypertension; Z88.8 Allergy status to other drugs, medicaments and biological substances
CPT/HCPCS: 36415; J1100; J1200; J1885; J2765; Q0092

== ENCOUNTER 2017-05-03 10:24 | Inpatient (IN) | payer OTHER ==
[~2017-05-03] VITALS: Ht 160 cm; Wt 56.7 kg
[2017-05-03 10:36] VITALS: Ht 160 cm; Wt 56.7 kg
[2017-05-03 10:51] LABS: BASOPHIL % 0.5 % (0-2); RED CELL DISTRIBUTION WIDTH 11.6 % (11.5-14.5)
[2017-05-03 11:00] LABS: CARBON DIOXIDE 29.3 mmol/L (21-32); CHLORIDE SERUM 90 mmol/L (98-107); CREATININE SERUM 0.5 mg/dL (0.6-1.0); GFR1 > 60 mL/min; GLUCOSE SERUM 98 mg/dL (74-106); POTASSIUM SERUM 4.1 mmol/L (3.5-5.1); SODIUM SERUM 129 mmol/L (136-145)
[2017-05-03 11:04] LABS: ALBUMIN 3.6 g/dL (3.4-5.0); ALKALINE PHOSPHATASE 85 U/L (46-116); ALT/SGPT 26 U/L (14-59); AST/SGOT 28 U/L (15-37); BILIRUBIN TOTAL 0.5 mg/dL (0.20-1.00)
[2017-05-03 11:05] LABS: AMPHETAMINE QUAL UR NONE DETECTED (NEG <=1000)
[2017-05-03 11:15] LABS: PLATELET COUNT 513 x10^3mcL (130-400)
[2017-05-03 13:29] LABS: MAGNESIUM 1.6 mg/dL (1.8-2.4); PHOSPHOROUS 4.7 mg/dL (2.5-4.9)
[2017-05-03 14:37] VITALS: BP 165/87
[2017-05-03 14:40] VITALS: BP 165/87
[2017-05-03 17:27] VITALS: BP 147/74
[2017-05-03 18:16] LABS: microscopic required? NO
[2017-05-03 18:23] VITALS: BP 147/74
[2017-05-03 18:31] LABS: UA SPECIFIC GRAVITY <=1.005 (1.005-1.035); urine erythrocyte NEGATIVE (NEGATIVE)
[2017-05-03] MEDS ORDERED: NORTRIPTYLINE H10 MG PO (19:00)
[2017-05-03] MEDS ORDERED: NALTREXONE HCL50 MG PO (19:01)
[2017-05-03] MEDS ORDERED: PRO40 PO (19:02)
[2017-05-03 20:47] VITALS: BP 129/59
[2017-05-04 05:12] VITALS: BP 151/68
[2017-05-04 06:50] LABS: BASOPHIL % 0.5 % (0-2); PLATELET COUNT 384 x10^3mcL (130-400); RED CELL DISTRIBUTION WIDTH 12.7 % (11.5-14.5)
[2017-05-04 07:16] LABS: CARBON DIOXIDE 26.9 mmol/L (21-32); CHLORIDE SERUM 95 mmol/L (98-107); CREATININE SERUM 0.5 mg/dL (0.6-1.0); GFR1 > 60 mL/min; GLUCOSE SERUM 88 mg/dL (74-106); MAGNESIUM 1.7 mg/dL (1.8-2.4); SODIUM SERUM 132 mmol/L (136-145)
[2017-05-04 09:40] VITALS: BP 139/76
[2017-05-04 13:30] VITALS: BP 133/58
[2017-05-04 18:20] VITALS: BP 140/47
[2017-05-04 21:55] VITALS: BP 136/62
[2017-05-05 05:18] VITALS: BP 157/81
[2017-05-05 07:30] LABS: BASOPHIL % 0.3 % (0-2); CARBON DIOXIDE 30.1 mmol/L (21-32); CHLORIDE SERUM 96 mmol/L (98-107); CREATININE SERUM 0.4 mg/dL (0.6-1.0); GFR1 > 60 mL/min; GLUCOSE SERUM 91 mg/dL (74-106); MAGNESIUM 1.5 mg/dL (1.8-2.4); PHOSPHOROUS 4.5 mg/dL (2.5-4.9); PLATELET COUNT 394 x10^3mcL (130-400); POTASSIUM SERUM 4.7 mmol/L (3.5-5.1); RED CELL DISTRIBUTION WIDTH 12.8 % (11.5-14.5); SODIUM SERUM 133 mmol/L (136-145)
[2017-05-05 10:29] VITALS: BP 132/71
[2017-05-05 18:00] VITALS: BP 142/69
[2017-05-05 22:17] VITALS: BP 149/75
[2017-05-06 05:39] VITALS: BP 174/89
[2017-05-06 07:32] LABS: BASOPHIL % 0.3 % (0-2); PLATELET COUNT 340 x10^3mcL (130-400); RED CELL DISTRIBUTION WIDTH 12.7 % (11.5-14.5)
[2017-05-06 07:43] LABS: CALCIUM 8.7 mg/dL (8.5-10.1); CHLORIDE SERUM 98 mmol/L (98-107); CREATININE SERUM 0.3 mg/dL (0.6-1.0); GFR1 > 60 mL/min; GLUCOSE SERUM 90 mg/dL (74-106); MAGNESIUM 1.9 mg/dL (1.8-2.4); POTASSIUM SERUM 3.6 mmol/L (3.5-5.1); SODIUM SERUM 134 mmol/L (136-145)
[2017-05-06 09:52] VITALS: BP 149/80
[2017-05-06 13:08] VITALS: BP 140/83
[2017-05-06 14:16] VITALS: BP 140/83
[2017-05-06] MEDS ORDERED: COLACE100 MG PO (15:23)
[2017-05-06] MEDS ORDERED: NORCO1 TA2 PO (15:23)
== END 2017-05-06 16:25 | disposition home health service (06) | DRG 342 ==
LOC: ED 10:24 → DU 12:10 → MU 05-04 10:45
PROVIDERS: Emergency Medicine; Family Medicine; Neuromusculoskeletal Medicine, Sports Medicine
PROC: 0PSKXZZ Reposition Right Ulna, External Approach (ICD-10-PCS; 2017-05-05)
PROC: 0PSHXZZ Reposition Right Radius, External Approach (ICD-10-PCS; principal; 2017-05-05 07:30)
DX: S52.611A Displaced fracture of right ulna styloid process, initial encounter for closed fracture (principal); G92 Toxic encephalopathy; E87.1 Hypo-osmolality and hyponatremia; E87.8 Other disorders of electrolyte and fluid balance, not elsewhere classified; E83.42 Hypomagnesemia; I10 Essential (primary) hypertension; S52.511A Displaced fracture of right radial styloid process, initial encounter for closed fracture; F10.129 Alcohol abuse with intoxication, unspecified; J44.9 Chronic obstructive pulmonary disease, unspecified; F60.3 Borderline personality disorder; I25.10 Atherosclerotic heart disease of native coronary artery without angina pectoris; F17.210 Nicotine dependence, cigarettes, uncomplicated; W18.39XA Other fall on same level, initial encounter; Y93.89 Activity, other specified; Y92.018 Other place in single-family (private) house as the place of occurrence of the external cause; Z68.21 Body mass index [BMI] 21.0-21.9, adult; Z88.8 Allergy status to other drugs, medicaments and biological substances; Z80.9 Family history of malignant neoplasm, unspecified; Z82.49 Family history of ischemic heart disease and other diseases of the circulatory system; E86.0 Dehydration
CPT/HCPCS: 76001; 83880; 94150; G0480; J0690; J1644; J1885; J2270; J2405; J2704; J3010; J3490; J7030; J7120; J7620; Q0092

== ENCOUNTER 2017-05-16 22:04 | Inpatient (IN) | payer OTHER ==
[~2017-05-16] VITALS: Ht 160 cm; Wt 68.0 kg
[~2017-05-16 22:04] MED LIST changes: +NALTREXONE HCL50 MG PO; +PRO40 PO
[2017-05-16 22:51] LABS: microscopic required? NO
[2017-05-16 23:01] LABS: BASOPHIL % 0.7 % (0-2); PLATELET COUNT 384 x10^3mcL (130-400); RED CELL DISTRIBUTION WIDTH 13.5 % (11.5-14.5)
[2017-05-16 23:10] LABS: UA SPECIFIC GRAVITY <=1.005 (1.005-1.035); urine erythrocyte NEGATIVE (NEGATIVE)
[2017-05-16 23:15] LABS: ALKALINE PHOSPHATASE 90 U/L (46-116); ALT/SGPT 22 U/L (14-59); AST/SGOT 30 U/L (15-37); BILIRUBIN TOTAL 0.2 mg/dL (0.20-1.00); CALCIUM 8.1 mg/dL (8.5-10.1); CARBON DIOXIDE 23.9 mmol/L (21-32); CHLORIDE SERUM 91 mmol/L (98-107); CREATININE SERUM 0.4 mg/dL (0.6-1.0); GFR1 > 60 mL/min; GLUCOSE SERUM 108 mg/dL (74-106); POTASSIUM SERUM 3.5 mmol/L (3.5-5.1); SODIUM SERUM 125 mmol/L (136-145); TOTAL PROTEIN, SERUM 7.3 g/dL (6.4-8.2)
[2017-05-16 23:16] LABS: AMPHETAMINE QUAL UR NONE DETECTED (NEG <=1000)
[2017-05-16 23:19] LABS: ALBUMIN 3.2 g/dL (3.4-5.0)
[2017-05-17 02:09] VITALS: BP 140/86
[2017-05-17 02:40] LABS: MAGNESIUM 1.7 mg/dL (1.8-2.4); PHOSPHOROUS 3.5 mg/dL (2.5-4.9)
[2017-05-17 02:49] LABS: FREE T4 0.81 ng/dL (0.76-1.46); T3 TOTAL 0.9 ng/mL; T4(THYROXINE) 5.5 ug/dL (4.7-13.3)
[2017-05-17 08:39] VITALS: BP 140/863
[2017-05-17 18:30] VITALS: BP 173/74
[2017-05-17 21:21] VITALS: BP 172/88
[2017-05-18 06:31] VITALS: BP 128/94
[2017-05-18 09:50] VITALS: BP 137/85
[2017-05-18 16:21] LABS: BASOPHIL % 0.7 % (0-2); PLATELET COUNT 375 x10^3mcL (130-400); RED CELL DISTRIBUTION WIDTH 13.8 % (11.5-14.5)
[2017-05-18 16:30] LABS: CALCIUM 9.5 mg/dL (8.5-10.1); CARBON DIOXIDE 26.4 mmol/L (21-32); CHLORIDE SERUM 89 mmol/L (98-107); CREATININE SERUM 0.4 mg/dL (0.6-1.0); GFR1 > 60 mL/min; GLUCOSE SERUM 148 mg/dL (74-106); MAGNESIUM 1.6 mg/dL (1.8-2.4); PHOSPHOROUS 3.3 mg/dL (2.5-4.9); SODIUM SERUM 126 mmol/L (136-145)
[2017-05-18 18:06] VITALS: BP 187/89
[2017-05-18 21:22] VITALS: BP 122/89
[2017-05-19 06:04] VITALS: BP 160/82
[2017-05-19 07:20] LABS: BASOPHIL % 0.5 % (0-2); PLATELET COUNT 302 x10^3mcL (130-400); RED CELL DISTRIBUTION WIDTH 13.8 % (11.5-14.5)
[2017-05-19 07:31] LABS: CARBON DIOXIDE 23.1 mmol/L (21-32); CHLORIDE SERUM 97 mmol/L (98-107); CREATININE SERUM 0.3 mg/dL (0.6-1.0); GFR1 > 60 mL/min; GLUCOSE SERUM 99 mg/dL (74-106); MAGNESIUM 1.7 mg/dL (1.8-2.4); PHOSPHOROUS 4.5 mg/dL (2.5-4.9); POTASSIUM SERUM 3.5 mmol/L (3.5-5.1); SODIUM SERUM 131 mmol/L (136-145)
[2017-05-19] MEDS ORDERED: ZES20 PO (10:08)
[2017-05-19] MEDS ORDERED: ACETAMINOPHEN-H1 TA1 PO (10:09)
[2017-05-19] MEDS ORDERED: PAM25 PO (10:10)
[2017-05-19] MEDS ORDERED: ATI1 PO (10:10)
[2017-05-19] MEDS ORDERED: PROTONIX40 MG/Pac1 PO (10:11)
[2017-05-19 10:15] VITALS: BP 126/94
[2017-05-19] MEDS ORDERED: MAGNESIUM OXID400 MG PO (10:19)
[2017-05-19] MEDS ORDERED: SOD1 PO (10:22)
[2017-05-19 11:35] VITALS: BP 126/94
[2017-05-19] MEDS ORDERED: NORTRIPTYLINE H10 MG PO (11:42)
== END 2017-05-19 11:58 | disposition home or self-care (01) | DRG 775 ==
LOC: ED 22:04 → DU 05-17 00:18 → MU 05-17 00:31 → DU 05-17 00:31 → MU 05-19 07:45
PROVIDERS: Emergency Medicine; Family Medicine
DX: F10.229 Alcohol dependence with intoxication, unspecified (principal); G92 Toxic encephalopathy; R45.851 Suicidal ideations; E87.8 Other disorders of electrolyte and fluid balance, not elsewhere classified; K86.1 Other chronic pancreatitis; E44.1 Mild protein-calorie malnutrition; E87.1 Hypo-osmolality and hyponatremia; F31.32 Bipolar disorder, current episode depressed, moderate; E83.42 Hypomagnesemia; F43.10 Post-traumatic stress disorder, unspecified; F41.0 Panic disorder [episodic paroxysmal anxiety]; I25.10 Atherosclerotic heart disease of native coronary artery without angina pectoris; K57.90 Diverticulosis of intestine, part unspecified, without perforation or abscess without bleeding; J44.9 Chronic obstructive pulmonary disease, unspecified; Y90.0 Blood alcohol level of less than 20 mg/100 ml; I10 Essential (primary) hypertension; F17.210 Nicotine dependence, cigarettes, uncomplicated; Z90.49 Acquired absence of other specified parts of digestive tract; Z88.8 Allergy status to other drugs, medicaments and biological substances; Z98.891 History of uterine scar from previous surgery; I25.2 Old myocardial infarction; Z80.9 Family history of malignant neoplasm, unspecified
CPT/HCPCS: 83880; 84439; G0378; G0480; J1885; J7030; J7620; Q0092

== ENCOUNTER 2017-06-05 22:53 | Emergency (ER) | payer OTHER ==
[~2017-06-05] VITALS: Ht 160 cm; Wt 57.1 kg
[~2017-06-05 22:53] MED LIST changes: +ACETAMINOPHEN-H1 TA1 PO; +ATI1 PO; +MAGNESIUM OXID400 MG PO; +NORTRIPTYLINE H10 MG PO; +PAM25 PO; +PROTONIX40 MG/Pac1 PO; +SOD1 PO; +ZES20 PO
[2017-06-05 23:00] VITALS: Ht 160 cm; Wt 57.1 kg
[2017-06-05 23:39] LABS: PLATELET COUNT 406 x10^3mcL (130-400); RED CELL DISTRIBUTION WIDTH 14.8 % (11.5-14.5)
[2017-06-05 23:49] LABS: CALCIUM 8.5 mg/dL (8.5-10.1); CARBON DIOXIDE 30.4 mmol/L (21-32); CHLORIDE SERUM 91 mmol/L (98-107); CREATININE SERUM 0.5 mg/dL (0.6-1.0); GFR1 > 60 mL/min; GLUCOSE SERUM 86 mg/dL (74-106); POTASSIUM SERUM 4.1 mmol/L (3.5-5.1); SODIUM SERUM 130 mmol/L (136-145)
[2017-06-05 23:54] LABS: ALKALINE PHOSPHATASE 85 U/L (46-116); ALT/SGPT 20 U/L (14-59); AST/SGOT 24 U/L (15-37); BILIRUBIN TOTAL 0.1 mg/dL (0.20-1.00); LIPASE 117 IU/L (73-393); TOTAL PROTEIN, SERUM 7.2 g/dL (6.4-8.2)
[2017-06-05 23:58] LABS: ALBUMIN 3.2 g/dL (3.4-5.0)
[2017-06-06] MEDS ORDERED: QVAR0.08 MG/Ac (00:06)
[2017-06-06] MEDS ORDERED: ASPIRIN ADULT L81 M5 PO (00:06)
[2017-06-06] MEDS ORDERED: VENTOLIN H0.09 MG/A1 (00:06)
[2017-06-06 02:34] LABS: AMPHETAMINE QUAL UR NONE DETECTED (NEG <=1000)
[2017-06-06 03:11] LABS: MAGNESIUM 1.6 mg/dL (1.8-2.4); PHOSPHOROUS 4.1 mg/dL (2.5-4.9)
[2017-06-06 03:23] LABS: CHOLESTEROL/HDL RATIO 2.5
[2017-06-06 03:25] LABS: T3 TOTAL 1.02 ng/mL
[2017-06-06 03:29] LABS: FREE T4 0.96 ng/dL (0.76-1.46); FREE THYROXINE INDEX 1.6 ug/dL (1.4-4.5); T4(THYROXINE) 4.7 ug/dL (4.7-13.3)
[2017-06-06 07:17] LABS: BASOPHIL % 0.8 % (0-2); PLATELET COUNT 361 x10^3mcL (130-400)
[2017-06-06 07:20] LABS: RED CELL DISTRIBUTION WIDTH 14.7 % (11.5-14.5)
[2017-06-06 07:27] LABS: CALCIUM 8.3 mg/dL (8.5-10.1); CHLORIDE SERUM 99 mmol/L (98-107); CREATININE SERUM 0.5 mg/dL (0.6-1.0); GFR1 > 60 mL/min; GLUCOSE SERUM 84 mg/dL (74-106); POTASSIUM SERUM 4.6 mmol/L (3.5-5.1); SODIUM SERUM 137 mmol/L (136-145)
[2017-06-06 10:39] VITALS: BP 140/77
== END 2017-06-06 10:39 | disposition home or self-care (01) ==
LOC: ED 22:53
PROVIDERS: Emergency Medicine; Family Medicine
DX: R10.9 Unspecified abdominal pain (principal); R07.9 Chest pain, unspecified; J18.9 Pneumonia, unspecified organism; J44.9 Chronic obstructive pulmonary disease, unspecified; I10 Essential (primary) hypertension; Z88.6 Allergy status to analgesic agent; Z88.8 Allergy status to other drugs, medicaments and biological substances
CPT/HCPCS: 83880; 84439; G0480; J1644; J1885; J1956; J2270; J2405; J2930; J7030; J7620; Q0092

== ENCOUNTER 2017-12-01 22:19 | Emergency (ER) | payer OTHER ==
[~2017-12-01] VITALS: Ht 152.4 cm; Wt 45.8 kg
[~2017-12-01 22:19] MED LIST changes: +ASPIRIN ADULT L81 M5 PO; +QVAR0.08 MG/Ac; +VENTOLIN H0.09 MG/A1
[2017-12-01 22:24] VITALS: Ht 152.4 cm; Wt 45.8 kg
[2017-12-02 04:27] VITALS: BP 128/86
== END 2017-12-02 04:27 | disposition home or self-care (01) ==
LOC: ED 22:19
DX: S43.402A Unspecified sprain of left shoulder joint, initial encounter (principal); J45.909 Unspecified asthma, uncomplicated; J44.9 Chronic obstructive pulmonary disease, unspecified; I10 Essential (primary) hypertension; Z88.8 Allergy status to other drugs, medicaments and biological substances; Z90.89 Acquired absence of other organs; W17.89XA Other fall from one level to another, initial encounter; Y93.89 Activity, other specified; Y92.89 Other specified places as the place of occurrence of the external cause; Y99.8 Other external cause status

== ENCOUNTER 2017-12-09 20:50 | Inpatient (IN) | payer OTHER ==
[~2017-12-09] VITALS: Ht 160 cm; Wt 47.2 kg
[2017-12-09 20:54] VITALS: Ht 160 cm; Wt 47.2 kg
[2017-12-09 21:42] LABS: BASOPHIL % 0.9 % (0-2); PLATELET COUNT 239 x10^3mcL (130-400); RED CELL DISTRIBUTION WIDTH 12.7 % (11.5-14.5)
[2017-12-09 22:00] LABS: CALCIUM 8.4 mg/dL (8.5-10.1); CARBON DIOXIDE 29.4 mmol/L (21-32); CHLORIDE SERUM 92 mmol/L (98-107); CREATININE SERUM 0.3 mg/dL (0.6-1.0); GFR1 > 60 mL/min; GLUCOSE SERUM 84 mg/dL (74-106); POTASSIUM SERUM 3.9 mmol/L (3.5-5.1); SODIUM SERUM 129 mmol/L (136-145)
[2017-12-09 22:04] LABS: ALKALINE PHOSPHATASE 136 U/L (46-116); ALT/SGPT 15 U/L (14-59); AST/SGOT 31 U/L (15-37); BILIRUBIN TOTAL 0.26 mg/dL (0.20-1.00); TOTAL PROTEIN, SERUM 7.5 g/dL (6.4-8.2)
[2017-12-09 22:34] LABS: UA SPECIFIC GRAVITY <=1.005 (1.005-1.035); microscopic required? YES; urine erythrocyte 1+ (NEGATIVE)
[2017-12-09 22:49] LABS: AMPHETAMINE QUAL UR NONE DETECTED (See below)
[2017-12-10] VITALS (10 sets, daily range): BP systolic 138–162; BP diastolic 90–113
[2017-12-10] MEDS ORDERED: TRAMADOL HCL50 MG (00:39)
[2017-12-10] MEDS ORDERED: ATROVENT H0.017 MG/1 (00:39)
[2017-12-10 02:11] LABS: MAGNESIUM 1.7 mg/dL (1.8-2.4); PHOSPHOROUS 3.9 mg/dL (2.5-4.9)
[2017-12-10 02:21] LABS: FREE T4 0.74 ng/dL (0.76-1.46); FREE THYROXINE INDEX 1.7 ug/dL (1.4-4.5); T3 TOTAL 0.96 ng/mL; T4(THYROXINE) 5.1 ug/dL (4.7-13.3)
[2017-12-10 07:13] LABS: BASOPHIL % 0.2 % (0-2); PLATELET COUNT 215 x10^3mcL (130-400); RED CELL DISTRIBUTION WIDTH 13.1 % (11.5-14.5)
[2017-12-10 07:26] LABS: CALCIUM 8.4 mg/dL (8.5-10.1); CHLORIDE SERUM 98 mmol/L (98-107); CREATININE SERUM 0.3 mg/dL (0.6-1.0); GFR1 > 60 mL/min; GLUCOSE SERUM 78 mg/dL (74-106); MAGNESIUM 1.5 mg/dL (1.8-2.4); PHOSPHOROUS 3.7 mg/dL (2.5-4.9); POTASSIUM SERUM 3.7 mmol/L (3.5-5.1); SODIUM SERUM 135 mmol/L (136-145)
[2017-12-10 08:54] LABS: OSMOLALITY SERUM 278 mOsm/kg (278-298)
[2017-12-11 05:25] VITALS: BP 153/85
[2017-12-11 09:50] VITALS: BP 140/100
[2017-12-11 13:05] VITALS: BP 143/95
[2017-12-11 17:56] VITALS: BP 155/103
[2017-12-11 20:57] VITALS: BP 156/102
[2017-12-12 05:21] VITALS: BP 162/104
[2017-12-12 06:55] LABS: BASOPHIL % 0.3 % (0-2); PLATELET COUNT 197 x10^3mcL (130-400); RED CELL DISTRIBUTION WIDTH 13.3 % (11.5-14.5)
[2017-12-12 07:14] LABS: CALCIUM 8.7 mg/dL (8.5-10.1); CHLORIDE SERUM 99 mmol/L (98-107); CREATININE SERUM 0.3 mg/dL (0.6-1.0); GFR1 > 60 mL/min; GLUCOSE SERUM 94 mg/dL (74-106); MAGNESIUM 1.6 mg/dL (1.8-2.4); PHOSPHOROUS 4.9 mg/dL (2.5-4.9); POTASSIUM SERUM 3.4 mmol/L (3.5-5.1); SODIUM SERUM 133 mmol/L (136-145)
[2017-12-12 08:00] VITALS: BP 180/111
[2017-12-12 09:48] VITALS: BP 138/91
[2017-12-12] MEDS ORDERED: ZES20 PO (11:46)
[2017-12-12 11:54] VITALS: BP 148/99
[2017-12-12] MEDS ORDERED: LEXAPRO10 MG PO (11:58)
[2017-12-12] MEDS ORDERED: FOL1 PO (11:59)
[2017-12-12] MEDS ORDERED: ATIVAN1 MG PO (11:59)
[2017-12-12] MEDS ORDERED: THI100 PO (12:00)
[2017-12-12] MEDS ORDERED: THERA-M CAPLET1 EACH PO (12:00)
[2017-12-12] MEDS ORDERED: MEDDP PO (12:02)
[2017-12-12] MEDS ORDERED: BD LACTINEX1.4 MG PO (12:13)
[2017-12-12] MEDS ORDERED: LEVAQUIN750 MG PO (12:13)
[2017-12-12 13:49] VITALS: BP 148/99
== END 2017-12-12 16:10 | disposition home or self-care (01) | DRG 133 ==
LOC: ED 20:50 → DU 12-10 00:25
PROVIDERS: Emergency Medicine; Internal Medicine
DX: J96.01 Acute respiratory failure with hypoxia (principal); E44.0 Moderate protein-calorie malnutrition; E83.42 Hypomagnesemia; E83.51 Hypocalcemia; R45.851 Suicidal ideations; F10.129 Alcohol abuse with intoxication, unspecified; J44.1 Chronic obstructive pulmonary disease with (acute) exacerbation; N39.0 Urinary tract infection, site not specified; E87.1 Hypo-osmolality and hyponatremia; F17.210 Nicotine dependence, cigarettes, uncomplicated; F31.32 Bipolar disorder, current episode depressed, moderate; I10 Essential (primary) hypertension; Y90.9 Presence of alcohol in blood, level not specified; Z79.82 Long term (current) use of aspirin; Z68.22 Body mass index [BMI] 22.0-22.9, adult; Z88.8 Allergy status to other drugs, medicaments and biological substances; Z90.49 Acquired absence of other specified parts of digestive tract; Z80.9 Family history of malignant neoplasm, unspecified; Z82.49 Family history of ischemic heart disease and other diseases of the circulatory system; Z71.41 Alcohol abuse counseling and surveillance of alcoholic
CPT/HCPCS: 84439; G0480; J0696; J3475; J3490; J7030; J7613; J7620; J7644

== ENCOUNTER 2018-02-21 10:43 | Inpatient (IN) | payer OTHER ==
[~2018-02-21] VITALS: Ht 157.5 cm; Wt 50.6 kg
[~2018-02-21 10:43] MED LIST changes: +ATROVENT H0.017 MG/1; +BD LACTINEX1.4 MG PO; +LEXAPRO10 MG PO; +MEDDP PO; +QVAR REDIHALE10.6 G1 IH; -QVAR0.08 MG/Ac; +THERA-M CAPLET1 EACH PO; +TRAMADOL HCL50 MG
[2018-02-21 11:34] LABS: PLATELET COUNT 203 x10^3mcL (130-400); RED CELL DISTRIBUTION WIDTH 13.8 % (11.5-14.5)
[2018-02-21 11:36] LABS: BASOPHIL % 2.3 % (0-2)
[2018-02-21 11:41] LABS: CALCIUM 9.1 mg/dL (8.5-10.1); CARBON DIOXIDE 23.5 mmol/L (21-32); CHLORIDE SERUM 90 mmol/L (98-107); CREATININE SERUM 0.7 mg/dL (0.6-1.0); GFR1 > 60 mL/min; GLUCOSE SERUM 61 mg/dL (74-106); POTASSIUM SERUM 4.3 mmol/L (3.5-5.1); SODIUM SERUM 126 mmol/L (136-145)
[2018-02-21 11:45] LABS: ALBUMIN 3.6 g/dL (3.4-5.0); ALKALINE PHOSPHATASE 161 U/L (46-116); ALT/SGPT 81 U/L (14-59); AST/SGOT 205 U/L (15-37); BILIRUBIN TOTAL 0.6 mg/dL (0.20-1.00); TOTAL PROTEIN, SERUM 7.5 g/dL (6.4-8.2)
[2018-02-21 13:30] VITALS: BP 113/74
[2018-02-21 13:37] LABS: T3 TOTAL 0.91 ng/mL
[2018-02-21 13:48] LABS: PHOSPHOROUS 5.4 mg/dL (2.5-4.9)
[2018-02-21 13:50] LABS: CHOLESTEROL/HDL RATIO 1.8
[2018-02-21 14:33] LABS: FREE T4 0.78 ng/dL (0.76-1.46)
[2018-02-21 14:35] LABS: FREE THYROXINE INDEX 1.4 ug/dL (1.4-4.5); T4(THYROXINE) 3.9 ug/dL (4.7-13.3)
[2018-02-21 14:39] LABS: microscopic required? NO
[2018-02-21 14:45] LABS: urine erythrocyte NEGATIVE (NEGATIVE)
[2018-02-21 16:22] VITALS: BP 126/84
[2018-02-21 18:07] LABS: AMPHETAMINE QUAL UR NONE DETECTED (See below)
[2018-02-21 19:16] VITALS: BP 120/82
[2018-02-21 23:06] VITALS: BP 87/51
[2018-02-22 03:43] VITALS: BP 98/56
[2018-02-22 05:41] LABS: CALCIUM 7.8 mg/dL (8.5-10.1); CARBON DIOXIDE 22.3 mmol/L (21-32); CHLORIDE SERUM 95 mmol/L (98-107); CREATININE SERUM 0.4 mg/dL (0.6-1.0); GFR1 > 60 mL/min; GLUCOSE SERUM 113 mg/dL (74-106); MAGNESIUM 1.6 mg/dL (1.8-2.4); PHOSPHOROUS 3.2 mg/dL (2.5-4.9); POTASSIUM SERUM 3.6 mmol/L (3.5-5.1)
[2018-02-22 05:50] LABS: SODIUM SERUM 123 mmol/L (136-145)
[2018-02-22 05:54] LABS: BASOPHIL % 0.7 % (0-2); PLATELET COUNT 193 x10^3mcL (130-400)
[2018-02-22 05:58] LABS: RED CELL DISTRIBUTION WIDTH 13.9 % (11.5-14.5)
[2018-02-22 06:41] VITALS: BP 106/63
[2018-02-22 08:04] VITALS: BP 92/62
[2018-02-22 09:12] LABS: CALCIUM 8.4 mg/dL (8.5-10.1); CARBON DIOXIDE 28.7 mmol/L (21-32); CHLORIDE SERUM 96 mmol/L (98-107); CREATININE SERUM 0.5 mg/dL (0.6-1.0); GFR1 > 60 mL/min; GLUCOSE SERUM 136 mg/dL (74-106); POTASSIUM SERUM 4.2 mmol/L (3.5-5.1); SODIUM SERUM 128 mmol/L (136-145)
[2018-02-22 11:31] VITALS: BP 118/69
[2018-02-22 13:06] LABS: CALCIUM 8.2 mg/dL (8.5-10.1); CARBON DIOXIDE 25.3 mmol/L (21-32); CHLORIDE SERUM 94 mmol/L (98-107); CREATININE SERUM 0.5 mg/dL (0.6-1.0); GFR1 > 60 mL/min; GLUCOSE SERUM 124 mg/dL (74-106); POTASSIUM SERUM 4.2 mmol/L (3.5-5.1); SODIUM SERUM 126 mmol/L (136-145)
[2018-02-22 15:25] VITALS: BP 143/85
[2018-02-22 19:10] LABS: CALCIUM 7.8 mg/dL (8.5-10.1); CARBON DIOXIDE 28.1 mmol/L (21-32); CHLORIDE SERUM 95 mmol/L (98-107); CREATININE SERUM 0.3 mg/dL (0.6-1.0); GFR1 > 60 mL/min; GLUCOSE SERUM 126 mg/dL (74-106); POTASSIUM SERUM 3.9 mmol/L (3.5-5.1); SODIUM SERUM 131 mmol/L (136-145)
[2018-02-23 05:23] VITALS: BP 112/59
[2018-02-23 05:33] LABS: BASOPHIL % 0.1 % (0-2); PLATELET COUNT 175 x10^3mcL (130-400)
[2018-02-23 05:49] LABS: ALT/SGPT 39 U/L (14-59); AST/SGOT 50 U/L (15-37); CALCIUM 7.9 mg/dL (8.5-10.1); CARBON DIOXIDE 29.3 mmol/L (21-32); CHLORIDE SERUM 98 mmol/L (98-107); CREATININE SERUM 0.3 mg/dL (0.6-1.0); GFR1 > 60 mL/min; GLUCOSE SERUM 90 mg/dL (74-106); MAGNESIUM 1.6 mg/dL (1.8-2.4); PHOSPHOROUS 3.5 mg/dL (2.5-4.9); SODIUM SERUM 135 mmol/L (136-145)
[2018-02-23 08:00] VITALS: BP 107/67
[2018-02-23 11:30] VITALS: BP 130/79
[2018-02-23 15:30] VITALS: BP 142/83
[2018-02-23 19:15] VITALS: BP 97/49
[2018-02-23 23:08] VITALS: BP 113/70
[2018-02-24] VITALS (7 sets, daily range): BP systolic 97–161; BP diastolic 67–84; Ht 157.5 cm; Wt 50.6 kg
[2018-02-24 06:22] LABS: CALCIUM 8.4 mg/dL (8.5-10.1); CARBON DIOXIDE 24.7 mmol/L (21-32); CHLORIDE SERUM 97 mmol/L (98-107); CREATININE SERUM 0.3 mg/dL (0.6-1.0); GFR1 > 60 mL/min; GLUCOSE SERUM 87 mg/dL (74-106); MAGNESIUM 1.4 mg/dL (1.8-2.4); PHOSPHOROUS 4.5 mg/dL (2.5-4.9); POTASSIUM SERUM 3.4 mmol/L (3.5-5.1); SODIUM SERUM 131 mmol/L (136-145)
[2018-02-24 06:35] LABS: BASOPHIL % 0.3 % (0-2); PLATELET COUNT 177 x10^3mcL (130-400); RED CELL DISTRIBUTION WIDTH 12.8 % (11.5-14.5)
[2018-02-25 05:06] VITALS: BP 149/87
[2018-02-25 06:43] LABS: BASOPHIL % 0.2 % (0-2); PLATELET COUNT 181 x10^3mcL (130-400); RED CELL DISTRIBUTION WIDTH 13.1 % (11.5-14.5)
[2018-02-25 06:54] LABS: CALCIUM 8.4 mg/dL (8.5-10.1); CARBON DIOXIDE 26.5 mmol/L (21-32); CHLORIDE SERUM 97 mmol/L (98-107); CREATININE SERUM 0.2 mg/dL (0.6-1.0); GFR1 > 60 mL/min; GLUCOSE SERUM 102 mg/dL (74-106); MAGNESIUM 1.8 mg/dL (1.8-2.4); SODIUM SERUM 133 mmol/L (136-145)
[2018-02-25 07:30] LABS: PHOSPHOROUS 3.9 mg/dL (2.5-4.9)
[2018-02-25 08:30] VITALS: BP 145/94
[2018-02-25 12:15] VITALS: BP 99/68
[2018-02-25 13:35] VITALS: BP 126/79
[2018-02-25 16:36] VITALS: BP 120/75
[2018-02-25 19:50] VITALS: BP 134/89
[2018-02-26 05:46] VITALS: BP 160/91
[2018-02-26 06:36] VITALS: BP 140/80
[2018-02-26 09:07] VITALS: BP 159/91
[2018-02-26 09:40] LABS: CARBON DIOXIDE 27.6 mmol/L (21-32); CREATININE SERUM 0.5 mg/dL (0.6-1.0); GFR1 > 60 mL/min; GLUCOSE SERUM 107 mg/dL (74-106)
[2018-02-26 09:43] LABS: BASOPHIL % 0.8 % (0-2); PLATELET COUNT 241 x10^3mcL (130-400); RED CELL DISTRIBUTION WIDTH 13.4 % (11.5-14.5)
[2018-02-26 10:02] LABS: CHLORIDE SERUM 94 mmol/L (98-107); POTASSIUM SERUM 3.3 mmol/L (3.5-5.1); SODIUM SERUM 127 mmol/L (136-145)
[2018-02-26 13:01] VITALS: BP 128/74
[2018-02-26 15:26] LABS: ALBUMIN 2.7 g/dL (3.4-5.0); BILIRUBIN DIRECT 0.36 mg/dL (0.0-0.2); BILIRUBIN TOTAL 0.98 mg/dL (0.20-1.00); TOTAL PROTEIN, SERUM 7.4 g/dL (6.4-8.2)
[2018-02-26 17:37] VITALS: BP 120/76
[2018-02-26 20:57] VITALS: BP 123/79
[2018-02-27 05:21] VITALS: BP 134/89
[2018-02-27 06:57] LABS: BASOPHIL % 0.3 % (0-2); PLATELET COUNT 263 x10^3mcL (130-400); RED CELL DISTRIBUTION WIDTH 13.2 % (11.5-14.5)
[2018-02-27 07:21] LABS: CARBON DIOXIDE 27.8 mmol/L (21-32); CHLORIDE SERUM 96 mmol/L (98-107); CREATININE SERUM 0.3 mg/dL (0.6-1.0); GFR1 > 60 mL/min; GLUCOSE SERUM 85 mg/dL (74-106); POTASSIUM SERUM 3.3 mmol/L (3.5-5.1); SODIUM SERUM 133 mmol/L (136-145)
[2018-02-27 08:40] VITALS: BP 131/72
[2018-02-27 08:49] VITALS: BP 131/72
[2018-02-27 13:45] VITALS: BP 103/65
[2018-02-27 16:24] VITALS: BP 101/68
[2018-02-27 21:59] VITALS: BP 116/77
[2018-02-28 05:47] VITALS: BP 118/79
[2018-02-28 09:15] LABS: PLATELET COUNT 339 x10^3mcL (130-400); RED CELL DISTRIBUTION WIDTH 13.3 % (11.5-14.5)
[2018-02-28 09:38] LABS: CALCIUM 8.5 mg/dL (8.5-10.1); CHLORIDE SERUM 98 mmol/L (98-107); CREATININE SERUM 0.3 mg/dL (0.6-1.0); GFR1 > 60 mL/min; GLUCOSE SERUM 84 mg/dL (74-106); POTASSIUM SERUM 3.9 mmol/L (3.5-5.1); SODIUM SERUM 130 mmol/L (136-145)
[2018-02-28 09:45] VITALS: BP 106/63
[2018-02-28 13:49] VITALS: BP 102/69
[2018-02-28 14:07] LABS: ATYPICAL LYMPH 3 %; BAND NEUTROPHIL 0 % (0-10); BASOPHIL 2 % (0-2); MONOCYTE 18 % (0-7); SEGMENTED NEUTROPHILS 70 % (37-75); rbc morphology (normal/abnorm) ABNORMAL (NORMAL)
[2018-02-28 14:08] LABS: PLATELET MORPHOLOGY PLATELETS NORMAL
[2018-02-28 17:25] VITALS: BP 93/49
[2018-02-28 21:17] VITALS: BP 123/68
[2018-03-01 05:37] VITALS: BP 136/91
[2018-03-01 06:39] LABS: BASOPHIL % 0.6 % (0-2); PLATELET COUNT 371 x10^3mcL (130-400); RED CELL DISTRIBUTION WIDTH 13.5 % (11.5-14.5)
[2018-03-01 07:18] LABS: CALCIUM 8.8 mg/dL (8.5-10.1); CARBON DIOXIDE 28.2 mmol/L (21-32); CHLORIDE SERUM 97 mmol/L (98-107); CREATININE SERUM 0.4 mg/dL (0.6-1.0); GFR1 > 60 mL/min; GLUCOSE SERUM 110 mg/dL (74-106); POTASSIUM SERUM 3.9 mmol/L (3.5-5.1); SODIUM SERUM 131 mmol/L (136-145)
[2018-03-01 09:20] VITALS: BP 97/62
[2018-03-01 12:34] VITALS: BP 99/71
[2018-03-01] MEDS ORDERED: LIPI20 PO (16:51)
[2018-03-01] MEDS ORDERED: TOP50 PO (16:52)
[2018-03-01] MEDS ORDERED: AMOXICILLIN/CLA1 TA6 PO (16:55)
[2018-03-01] MEDS ORDERED: VERAPAMIL HCL180 M1 PO (17:08)
[2018-03-01] MEDS ORDERED: METOPROLOL TART25 M1 PO (17:08)
[2018-03-01 17:29] VITALS: BP 113/79
[2018-03-01 17:38] VITALS: BP 113/79
[2018-03-01 20:42] VITALS: BP 134/83
[2018-03-02 06:06] VITALS: BP 131/88
[2018-03-02 08:40] VITALS: BP 120/84
[2018-03-02 11:31] VITALS: BP 109/76
[2018-03-02 12:50] VITALS: BP 120/84
[2018-03-02] MEDS ORDERED: TOP50 PO (13:35)
[2018-03-02 17:17] VITALS: BP 124/70
== END 2018-03-02 19:41 | DRG 190 ==
LOC: ED 10:43 → IC 12:18 → DU 12:18 → IC 13:05 → DU 13:14 → IC 17:10 → DU 02-24 13:47
PROVIDERS: Emergency Medicine; Family Medicine; Internal Medicine; Internal Medicine Nephrology
PROC: 5A09357 Assistance with Respiratory Ventilation, Less than 24 Consecutive Hours, Continuous Positive Airway Pressure (ICD-10-PCS; principal; 2018-02-23)
DX: I21.A1 Myocardial infarction type 2 (principal); J69.0 Pneumonitis due to inhalation of food and vomit; J96.00 Acute respiratory failure, unspecified whether with hypoxia or hypercapnia; E43 Unspecified severe protein-calorie malnutrition; G93.41 Metabolic encephalopathy; I47.1 Supraventricular tachycardia; E87.1 Hypo-osmolality and hyponatremia; J44.1 Chronic obstructive pulmonary disease with (acute) exacerbation; F10.230 Alcohol dependence with withdrawal, uncomplicated; F17.210 Nicotine dependence, cigarettes, uncomplicated; F31.9 Bipolar disorder, unspecified; E83.39 Other disorders of phosphorus metabolism; E78.5 Hyperlipidemia, unspecified; E16.2 Hypoglycemia, unspecified; G89.29 Other chronic pain; M54.89 Other dorsalgia; I25.2 Old myocardial infarction; I10 Essential (primary) hypertension; I49.9 Cardiac arrhythmia, unspecified; I25.10 Atherosclerotic heart disease of native coronary artery without angina pectoris; E87.6 Hypokalemia; J44.0 Chronic obstructive pulmonary disease with (acute) lower respiratory infection; E83.42 Hypomagnesemia; Z68.1 Body mass index [BMI] 19.9 or less, adult; Z86.73 Personal history of transient ischemic attack (TIA), and cerebral infarction without residual deficits; Z71.6 Tobacco abuse counseling; Z88.8 Allergy status to other drugs, medicaments and biological substances; Z90.49 Acquired absence of other specified parts of digestive tract; Z82.49 Family history of ischemic heart disease and other diseases of the circulatory system
CPT/HCPCS: 36600; 83880; 84439; 94150; 97110-GP; 97116-GP; 97530-GP; G0480; J0153; J1940; J2060; J2270; J2543; J3475; J3480; J3490; J7030; J7040; J7620; J7626; Q0092

== ENCOUNTER 2018-06-06 13:45 | Emergency (ER) | payer OTHER ==
[~2018-06-06] VITALS: Ht 152.4 cm; Wt 49.0 kg
[~2018-06-06 13:45] MED LIST changes: +AMOXICILLIN/CLA1 TA6 PO; +LIPI20 PO; +TOP50 PO; +VERAPAMIL HCL180 M1 PO
[2018-06-06 14:46] VITALS: Ht 152.4 cm; Wt 49.0 kg
[2018-06-06 15:23] LABS: BASOPHIL % 0.6 % (0-2); PLATELET COUNT 336 x10^3mcL (130-400); RED CELL DISTRIBUTION WIDTH 13.6 % (11.5-14.5)
[2018-06-06 15:28] LABS: CALCIUM 9.2 mg/dL (8.5-10.1); CARBON DIOXIDE 30.8 mmol/L (21-32); CHLORIDE SERUM 97 mmol/L (98-107); CREATININE SERUM 0.5 mg/dL (0.6-1.0); GFR1 > 60 mL/min; GLUCOSE SERUM 136 mg/dL (74-106); POTASSIUM SERUM 4.7 mmol/L (3.5-5.1); SODIUM SERUM 136 mmol/L (136-145)
[2018-06-06 15:33] LABS: ALBUMIN 3.8 g/dL (3.4-5.0); ALKALINE PHOSPHATASE 102 U/L (46-116); ALT/SGPT 18 U/L (14-59); AMYLASE 40 U/L (25-115); AST/SGOT 16 U/L (15-37); BILIRUBIN TOTAL 0.3 mg/dL (0.20-1.00); LIPASE 91 IU/L (73-393)
[2018-06-06 15:34] LABS: TOTAL PROTEIN, SERUM 8.7 g/dL (6.4-8.2)
[2018-06-06 18:14] VITALS: BP 131/90
== END 2018-06-06 18:14 | disposition home or self-care (01) ==
LOC: ED 13:45
PROVIDERS: Emergency Medicine
DX: K57.32 Diverticulitis of large intestine without perforation or abscess without bleeding (principal); J45.909 Unspecified asthma, uncomplicated; J44.9 Chronic obstructive pulmonary disease, unspecified; I10 Essential (primary) hypertension; I25.2 Old myocardial infarction; F31.9 Bipolar disorder, unspecified; Z90.89 Acquired absence of other organs; Z90.49 Acquired absence of other specified parts of digestive tract; Z91.011 Allergy to milk products; Z88.8 Allergy status to other drugs, medicaments and biological substances
CPT/HCPCS: 36415; J1885

== ENCOUNTER 2018-11-13 18:04 | Emergency (ER) | payer OTHER ==
[~2018-11-13] VITALS: Ht 152.4 cm; Wt 44.5 kg
[2018-11-13 18:12] VITALS: Ht 152.4 cm; Wt 44.5 kg
[2018-11-13 18:42] LABS: BASOPHIL % 0.9 % (0-2); PLATELET COUNT 345 x10^3mcL (130-400); RED CELL DISTRIBUTION WIDTH 14.3 % (11.5-14.5)
[2018-11-13 18:52] LABS: CALCIUM 8.6 mg/dL (8.5-10.1); CARBON DIOXIDE 26.9 mmol/L (21-32); CHLORIDE SERUM 100 mmol/L (98-107); CREATININE SERUM 0.5 mg/dL (0.6-1.0); GFR1 > 60 mL/min; GLUCOSE SERUM 91 mg/dL (74-106); POTASSIUM SERUM 3.7 mmol/L (3.5-5.1); SODIUM SERUM 135 mmol/L (136-145)
[2018-11-13 18:56] LABS: ALBUMIN 3.6 g/dL (3.4-5.0); ALKALINE PHOSPHATASE 82 U/L (46-116); ALT/SGPT 17 U/L (14-59); AST/SGOT 16 U/L (15-37); BILIRUBIN TOTAL 0.24 mg/dL (0.20-1.00); CHOLESTEROL 184 mg/dL (<200); PHOSPHOROUS 3.9 mg/dL (2.5-4.9); TOTAL PROTEIN, SERUM 7.6 g/dL (6.4-8.2); URIC ACID 3.6 mg/dL (2.6-6.0)
[2018-11-13 18:57] LABS: HDL CHOLESTEROL 71 mg/dL (40-60)
[2018-11-13 20:16] VITALS: BP 155/92
== END 2018-11-13 20:16 | disposition home or self-care (01) ==
LOC: ED 18:04
PROVIDERS: Emergency Medicine
DX: T67.5XXA Heat exhaustion, unspecified, initial encounter (principal); F11.23 Opioid dependence with withdrawal; J44.9 Chronic obstructive pulmonary disease, unspecified; I10 Essential (primary) hypertension; F31.9 Bipolar disorder, unspecified; G89.29 Other chronic pain; M54.9 Dorsalgia, unspecified; Z88.8 Allergy status to other drugs, medicaments and biological substances; Z91.011 Allergy to milk products; Z90.49 Acquired absence of other specified parts of digestive tract; Z90.89 Acquired absence of other organs; Z98.890 Other specified postprocedural states; X58.XXXA Exposure to other specified factors, initial encounter; Y93.89 Activity, other specified; Y92.89 Other specified places as the place of occurrence of the external cause; Y99.8 Other external cause status
CPT/HCPCS: 36415; Q0162

== ENCOUNTER 2019-01-21 16:34 | Inpatient (IN) | payer OTHER ==
[~2019-01-21] VITALS: Ht 157.5 cm; Wt 56.7 kg
--- NOTE | 2019-01-21 17:05 | NUR ---
RECIEVED PATIENT BIB [facility] S/P FALL LEFT ANKLE AND LEG PAIN. PT SOB UPON ARRIVAL, AAOX4, BREATHING LABORED, TACHY. SKIN WARM, DRY, INTACT. NO OBVIOUS SIGNS OF TRAUMA. PT CONNECTED TO MONITORS FOR FURTHER OBSERVATION. WILL CONTINUE TO MONITOR.
--- NOTE | 2019-01-21 17:19 | NUR ---
PT REFUSED ABG
[2019-01-21 17:27] LABS: CALCIUM 8.4 mg/dL (8.5-10.1); CARBON DIOXIDE 29.5 mmol/L (21-32); CHLORIDE SERUM 102 mmol/L (98-107); CREATININE SERUM 0.5 mg/dL (0.6-1.0); GFR1 > 60 mL/min; GLUCOSE SERUM 91 mg/dL (74-106); POTASSIUM SERUM 3.6 mmol/L (3.5-5.1); SODIUM SERUM 138 mmol/L (136-145)
[2019-01-21 17:31] LABS: BASOPHIL % 0.6 % (0-2); PLATELET COUNT 353 x10^3mcL (130-400); RED CELL DISTRIBUTION WIDTH 13.3 % (11.5-14.5)
[2019-01-21 17:39] LABS: ALBUMIN 3.5 g/dL (3.4-5.0); ALKALINE PHOSPHATASE 89 U/L (46-116); ALT/SGPT 21 U/L (14-59); AST/SGOT 22 U/L (15-37); BILIRUBIN TOTAL 0.3 mg/dL (0.20-1.00); CHOLESTEROL 156 mg/dL (<200); LIPASE 70 IU/L (73-393); MAGNESIUM 1.7 mg/dL (1.8-2.4); T4(THYROXINE) 6.4 ug/dL (4.7-13.3); TOTAL PROTEIN, SERUM 7.4 g/dL (6.4-8.2)
[2019-01-21 17:46] LABS: HDL CHOLESTEROL 68 mg/dL (40-60)
--- NOTE | 2019-01-21 18:12 | NUR ---
MEDICATED PER MD ORDERS
--- NOTE | 2019-01-21 18:31 | NUR ---
PT PLACED ON BEDPAN, URINE SAMPLE PROVIDED AND SENT TO LAB PER MD ORDERS.
[2019-01-21 18:38] LABS: microscopic required? NO
[2019-01-21 18:50] LABS: UA SPECIFIC GRAVITY <=1.005 (1.005-1.035); urine erythrocyte NEGATIVE (NEGATIVE)
[2019-01-21 18:58] LABS: AMPHETAMINE QUAL UR NONE DETECTED (See below)
--- NOTE | 2019-01-21 19:15 | NUR ---
PLACED PT ON THE BEDPAN, PT TOELRATED WELL.
--- NOTE | 2019-01-21 19:16 | NUR ---
RECEIVED REPORT FROM LEATHA SEARS, I WILL ASSUME FURTHER CARE OF THIS PATIENT.
--- NOTE | 2019-01-21 19:16 | NUR ---
REPORT GIVEN TO BRYAN NDIAYE FOR FURTHER CARE OF PATIENT.
--- NOTE | 2019-01-21 19:20 | NUR ---
PT IN POSITION OF COMFORT, PT IS AAOX4, NO DISTRESS NOTED, RESP E/U, SKIN IS INTACT PINK WARM AND DRY. PT ON FULL CM, WILL CONT TO MONITOR.
--- NOTE | 2019-01-21 19:55 | NUR ---
DR WHITE AT THE BEDSIDE DISCUSSING PLAN OF CARE TO PATIENT. PT TO BE ADMITTED TO THE HOSPITAL FOR FURTHER CARE.
--- NOTE | 2019-01-21 20:00 | NUR ---
PT FOUND AMBULATING IN HER ROOM TO USE THE RESTROOM. PT INSTRUCTED SHE IS NOT TO WALK WITH ASSISTANCE. PT PLACED ON BEDPAN AND TOLERATED WELL. . PT UPSET AND STATED "I WANT TO USE THE BATHROOM. I DO NOT WANT TO PISS ALL OVER MYSELF." PT EDUCATED ABOUT FALLS TO PREVENT FURTHER HIP INJURY.
--- NOTE | 2019-01-21 20:15 | NUR ---
PT SPO2 @86% AT THIS TIME. PT REFUSED OXYGEN, PT STATED "I KNOW WHEN I NEED OXYGEN AND I DO NOT NEED IT, THAT THING IN MY NOSE IS BOTHERING ME. I DO NOT WANT IT. I WANT TO GO. I CAN COME BACK IN THE MORNING AND YOU GUYS CAN DO FURTHER TESTING THEN IF YOU ARENT GOING TO DO ANYTHING OVER NIGHT." INFORMED PT THAT WE WILL MONITOR HER OVERNIGHT AND IMPORTANCE OF HOSPITALIZATION. MD AWARE THAT PT NOT WANTING TO STAY.
--- NOTE | 2019-01-21 20:18 | NUR ---
DR WHITE AND DR ASIA WOOD RN ZELDA MCDOWELL AT BEDSIDE TO DISCUSS WITH PATIENT PLAN OF CARE. DR WHITE EXPLAINED IN DETAIL HER DIAGNOSIS OF "ABNORMAL HEART RYTHYM" AND "LOOSE HIP." ALSO EDUICATED PT THE IMPORTANCE OF OXYGEN. AKSED PT IF SHE UNDERSTADNS WHY THE DR WANTS TO ADMIT HER AND ASKED IF SHE HAD ANYMORE QUESTIONS WHILE THE DOCTORS ARE AT THE BEDSIDE. PT STATED, "NOW I KNOW WHY I AM HERE. I WANT MY SISTER, MY POWER OF GROUNDS CARETAKER CALLED, SOMETHING TO EAT AND MY LIPITOR. I DO NOT HAVE ANY MORE QUESTIONS."
--- NOTE | 2019-01-21 20:18 | NUR ---
PT AGREED TO PLACE OXYGEN VIA NC. SPO2 @98% ON O2 VIA NC
[2019-01-21] MEDS ORDERED: LIPI10 PO (21:03)
[2019-01-21] MEDS ORDERED: CARDIZEM CD180 MG PO (21:03)
--- NOTE | 2019-01-21 21:19 | NUR ---
REPORT GIVEN TO TAVARES ADAMS ON TELE UNIT, WHO WILL ASSUME FURTHER CARE OF THIS PATIENT.
--- NOTE | 2019-01-21 21:30 | NUR ---
PT GIVEN GINA JASSO. PT STATED SHE DOES NOT LIKE JT, HANNAH OR ZIA.
--- NOTE | 2019-01-21 22:00 | NUR ---
RECEIVED PT FROM ED VIA BOYD, CAME IN DUE TO LEFT LEG PAIN S/P FALL, DENIES SYNCOPAL EPISODE. AAOX4. DENIES HEADACHE/DIZZINESS. ABLE TO FOLLOW COMMANDS. NO SOB NOTED, LUNG SOUNDS DIMINISHED ON AUSCULTATION, O2 SAT=92% RA. DENIES CHEST PAIN/PRESSURE, SR ON THE MONITOR. DENIES ABDOMINAL DISCOMFORT. VOIDS. LIMITED ROM ON LLE. C/O 8/10 LLE PAIN WORSE ON MOVEMENT, PAIN IS DESCRIBED THROBBING. IV SITE ON THE LAC GAUGE 22 IS PATENT AND INTACT. SIDE RAILS UPX2. CALL LIGHT ON REACH. PRIMARY NURSE TAVARES AT BEDSIDE FOR CONTINUITY OF CARE
--- NOTE | 2019-01-21 22:05 | NUR ---
PT RECEIVED FROM RESOURCE NURSE. PT A/O X4, ABLE TO MAKE NEEDS KNOWN. TELE #26, PT DENIES ANY CP/PRESSURE. PULSES PALPABLE, NO EDEMA PRESENT. BREATHING IS EVEN AND UNLABORED ON SAT-92%, DENIES SOB, NO RESP DISTRESS NOTED. ABD SOFT AND NONDISTENDED, DENIES N/V. VOIDS FREELY. GENERALIZED WEAKNESS. PT ADMITTED S/P FALL. SKIN IS WARM AND DRY, INTACT. PT REPORTS PAIN TO LLE, WILL MEDICATE WITH PRN PAIN MED. IV TO LAC, PATENT AND INTACT, SITE WNL. NO ACUTE DISTRESS NOTED. ORIENTED PT TO ROOM AND CALL LIGHT. BED IN LOWEST SETTING, SIDE RAILS UP X2, CALL LIGHT WITHIN REACH. WILL CONT TO MONITOR.
[2019-01-21 22:14] VITALS: BP 154/87
[2019-01-21 22:23] VITALS: Ht 157.5 cm; Wt 56.7 kg
--- NOTE | 2019-01-21 23:15 | NUR ---
PT C/O DIFFICULTY WALKING TO BATHROOM TO VOID. INSTRUCTED PT TO USE BEDPAN, PT REFUSED TO USE BEDPAN AND STATES, "I DON'T WANT TO, IT MAKES ME FEEL DIRTY AND I DON'T WANT PEE ALL OVER MY SELF." PT REQUESTING TO HAVE AU CATH INSTEAD. EDUCATED PT ON INCREASE RISK FOR INFECTION WITH AU CATH, PT VERBALIZES UNDERSTANDING BUT INSISTENT ON HAVING A AU CATH. DR HART CALLED AND MADE AWARE. ORDERS RECEIVED. AU CATH, 16 Fr, INSERTED ORDERED, WITH 200 ML YELLOW URINE OUTPUT NOTED. PT TOLERATED WELL. NO ACUTE DISTRESS OBSERVED, WILL CONT TO MONITOR.
--- NOTE | 2019-01-21 23:35 | NUR ---
PT C/O 10/01 LLE PAIN, PRN NORCO GIVEN ORDERED PER EMAR. NO ACUTE DISTRESS NOTED. WILL CONT TO MONITOR.
[2019-01-22 01:30] VITALS: BP 154/87
[2019-01-22 05:49] VITALS: BP 114/66
[2019-01-22 06:38] LABS: BASOPHIL % 0.1 % (0-2); PLATELET COUNT 335 x10^3mcL (130-400); RED CELL DISTRIBUTION WIDTH 13.7 % (11.5-14.5)
[2019-01-22 06:57] LABS: CALCIUM 8.5 mg/dL (8.5-10.1); CARBON DIOXIDE 29.5 mmol/L (21-32); CHLORIDE SERUM 107 mmol/L (98-107); CREATININE SERUM 0.5 mg/dL (0.6-1.0); GFR1 > 60 mL/min; GLUCOSE SERUM 145 mg/dL (74-106); PHOSPHOROUS 3.7 mg/dL (2.5-4.9); POTASSIUM SERUM 5.2 mmol/L (3.5-5.1); SODIUM SERUM 144 mmol/L (136-145)
--- NOTE | 2019-01-22 07:35 | NUR ---
A+OX4, NO RESPRIATORY DISTRESS NOTED, TELE 26, PULSES MODERATE AND EQUAL IBAN, NO EDEMA NOTED, LUNG SOUNDS CTA, BOWEL SOUNDS ACTIVE, AU CATH DRAINING URINE TO GRAVITY, LIMITED ROM ON LLE, WEAKNESS LLE, SKIN INTACT, IV IN LAC WITH NS @ 100 ML/HR, SITE WNL.
--- NOTE | 2019-01-22 07:41 | NUR ---
PT SLEPT WELL THROUGHOUT THE EVENING. BREATHING IS EVEN AND UNLABORED, NO RESP DISTRESS NOTED. AU CATH IN PLACE, DRAINING YELLOW URINE. PT DENIES HAVING ANY PAIN AT THIS TIME. NO ACUTE CHANGES ENCOUNTERED DURING SHIFT. ALL NEEDS MET AT ANTICIPATED. IV TO LAC, PATENT AND INTACT. BED ALARM ON, CALL LIGHT WITHIN REACH. CONTINUITY OF CARE ENDORSED TO AM NURSE.
[2019-01-22 08:54] VITALS: BP 145/97
--- NOTE | 2019-01-22 09:02 | NUR ---
PT RESTING IN BED, NO RESPIRATORY DISTRESS NOTED, DENIES PAIN, CALL LIGHT WITHIN REACH.
[2019-01-22 11:48] VITALS: BP 140/80
[2019-01-22] MEDS ORDERED: MUCINEX600 MG PO (12:37)
[2019-01-22] MEDS ORDERED: PREDNISONE20 MG PO (12:38)
[2019-01-22] MEDS ORDERED: LEVOFLOXACIN500 M1 PO (12:39)
--- NOTE | 2019-01-22 15:08 | NUR ---
PT GIVEN DC INSTRUCTIONS INCLUDING PRESCRIPTIONS AND VERBALIZED UNDERSTANDING. IV REMOVED WITH CATHETER INTACT, SITE WNL. TELE REMOVED AND RETURNED TO MT STATION. ASSISTED PT TO DRESS IN OWN CLOTHES. PT OFF UNIT VIA WC ESCORTED BY LENKA WITH ALL BELONGINGS. PT STATES SHE WILL USE THE [employer] PHONE TO CALL HER DAUGHTER FOR AN UBER.
== END 2019-01-22 15:09 | disposition home or self-care (01) | DRG 349 ==
LOC: ED 16:34 → DU 19:37
PROVIDERS: Emergency Medicine; ADMIT General Practice
DX: T84.031A Mechanical loosening of internal left hip prosthetic joint, initial encounter (principal); J96.20 Acute and chronic respiratory failure, unspecified whether with hypoxia or hypercapnia; S09.90XA Unspecified injury of head, initial encounter; E83.42 Hypomagnesemia; F31.4 Bipolar disorder, current episode depressed, severe, without psychotic features; J44.1 Chronic obstructive pulmonary disease with (acute) exacerbation; S93.402A Sprain of unspecified ligament of left ankle, initial encounter; F17.210 Nicotine dependence, cigarettes, uncomplicated; I10 Essential (primary) hypertension; W18.39XA Other fall on same level, initial encounter; Y93.89 Activity, other specified; Y92.018 Other place in single-family (private) house as the place of occurrence of the external cause; S30.0XXA Contusion of lower back and pelvis, initial encounter; M54.9 Dorsalgia, unspecified; Z68.23 Body mass index [BMI] 23.0-23.9, adult; Z90.49 Acquired absence of other specified parts of digestive tract; G89.4 Chronic pain syndrome; Y83.8 Other surgical procedures as the cause of abnormal reaction of the patient, or of later complication, without mention of misadventure at the time of the procedure; Z82.49 Family history of ischemic heart disease and other diseases of the circulatory system; I25.2 Old myocardial infarction
CPT/HCPCS: 82962; 94150; 99406; G0378; G0480; J1644; J1885; J2920; J2930; J7030; J7613; J7620; J7644

== ENCOUNTER 2019-03-25 10:51 | Emergency (ER) | payer OTHER ==
[~2019-03-25] VITALS: Ht 157.5 cm; Wt 57.2 kg
[~2019-03-25 10:51] MED LIST changes: +CARDIZEM CD180 MG PO; +LIPI10 PO; +MUCINEX600 MG PO; +PREDNISONE20 MG PO
[2019-03-25 10:58] VITALS: Ht 157.5 cm; Wt 57.2 kg
[2019-03-25 13:06] LABS: CALCIUM 8.7 mg/dL (8.5-10.1); CARBON DIOXIDE 31.1 mmol/L (21-32); CHLORIDE SERUM 100 mmol/L (98-107); CREATININE SERUM 0.5 mg/dL (0.6-1.0); GFR1 > 60 mL/min; GLUCOSE SERUM 87 mg/dL (74-106); POTASSIUM SERUM 3.7 mmol/L (3.5-5.1); SODIUM SERUM 139 mmol/L (136-145)
[2019-03-25 13:10] LABS: ALBUMIN 3.8 g/dL (3.4-5.0); ALKALINE PHOSPHATASE 86 U/L (46-116); ALT/SGPT 22 U/L (14-59); AST/SGOT 16 U/L (15-37); BASOPHIL % 0.4 % (0-2); BILIRUBIN TOTAL 0.3 mg/dL (0.20-1.00); CHOLESTEROL 168 mg/dL (<200); PHOSPHOROUS 3.5 mg/dL (2.5-4.9); PLATELET COUNT 292 x10^3mcL (130-400); RED CELL DISTRIBUTION WIDTH 12.9 % (11.5-14.5); URIC ACID 3.9 mg/dL (2.6-6.0)
[2019-03-25 13:11] LABS: HDL CHOLESTEROL 62 mg/dL (40-60)
[2019-03-25 13:51] VITALS: BP 148/79
== END 2019-03-25 13:52 | disposition home or self-care (01) ==
LOC: ED 10:51
PROVIDERS: Emergency Medicine
DX: J44.1 Chronic obstructive pulmonary disease with (acute) exacerbation (principal); F17.210 Nicotine dependence, cigarettes, uncomplicated; J45.909 Unspecified asthma, uncomplicated; I10 Essential (primary) hypertension; F31.9 Bipolar disorder, unspecified; G89.29 Other chronic pain; F10.10 Alcohol abuse, uncomplicated; Z98.890 Other specified postprocedural states; Z90.49 Acquired absence of other specified parts of digestive tract; Z90.89 Acquired absence of other organs; Z88.8 Allergy status to other drugs, medicaments and biological substances
CPT/HCPCS: 36415; J1885; J7512; J7620; Q0092

== ENCOUNTER 2019-05-27 09:14 | Emergency (ER) | payer OTHER ==
[~2019-05-27] VITALS: Ht 157.5 cm; Wt 59.6 kg
[2019-05-27 10:00] VITALS: Ht 157.5 cm; Wt 59.6 kg
[2019-05-27 10:33] LABS: CALCIUM 9.6 mg/dL (8.5-10.1); CARBON DIOXIDE 31.9 mmol/L (21-32); CHLORIDE SERUM 101 mmol/L (98-107); CREATININE SERUM 0.5 mg/dL (0.6-1.0); GFR1 > 60 mL/min; GLUCOSE SERUM 71 mg/dL (74-106); POTASSIUM SERUM 4.3 mmol/L (3.5-5.1); SODIUM SERUM 138 mmol/L (136-145)
[2019-05-27 10:34] LABS: microscopic required? NO
[2019-05-27 10:37] LABS: ALKALINE PHOSPHATASE 92 U/L (46-116); ALT/SGPT 23 U/L (14-59); AST/SGOT 18 U/L (15-37); BILIRUBIN TOTAL 0.3 mg/dL (0.20-1.00); LIPASE 83 IU/L (73-393)
[2019-05-27 10:38] LABS: TOTAL PROTEIN, SERUM 8.4 g/dL (6.4-8.2)
[2019-05-27 10:55] LABS: BASOPHIL % 0.5 % (0-2); PLATELET COUNT 332 x10^3mcL (130-400); RED CELL DISTRIBUTION WIDTH 13.4 % (11.5-14.5)
[2019-05-27 11:07] LABS: UA SPECIFIC GRAVITY <=1.005 (1.005-1.035); urine erythrocyte NEGATIVE (NEGATIVE)
[2019-05-27 11:36] VITALS: BP 137/79
== END 2019-05-27 11:38 | disposition home or self-care (01) ==
LOC: ED 09:14
PROVIDERS: Emergency Medicine
DX: K57.32 Diverticulitis of large intestine without perforation or abscess without bleeding (principal)
CPT/HCPCS: 36415; J7512

== ENCOUNTER 2019-06-24 12:29 | Emergency (ER) | payer OTHER ==
[~2019-06-24] VITALS: Ht 157.5 cm; Wt 60.3 kg
[2019-06-24 12:44] VITALS: BP 142/93; Ht 157.5 cm; Wt 60.3 kg
== END 2019-06-24 14:10 | disposition home or self-care (01) ==
LOC: ED 12:29
DX: S09.90XA Unspecified injury of head, initial encounter (principal); V49.9XXA Car occupant (driver) (passenger) injured in unspecified traffic accident, initial encounter; Y93.89 Activity, other specified; Y92.89 Other specified places as the place of occurrence of the external cause; Y99.8 Other external cause status

== ENCOUNTER 2019-10-26 07:33 | Inpatient (IN) | payer OTHER ==
[~2019-10-26] VITALS: Ht 157.5 cm; Wt 59.4 kg
[2019-10-26 07:37] VITALS: Ht 157.5 cm; Wt 59.4 kg
[2019-10-26 09:16] LABS: BASOPHIL % 0.3 % (0-2); PLATELET COUNT 221 x10^3mcL (130-400)
[2019-10-26 09:35] LABS: CALCIUM 8.4 mg/dL (8.5-10.1); CARBON DIOXIDE 29.2 mmol/L (21-32); CHLORIDE SERUM 95 mmol/L (98-107); CREATININE SERUM 0.5 mg/dL (0.6-1.0); GFR1 > 60 mL/min; GLUCOSE SERUM 107 mg/dL (74-106); POTASSIUM SERUM 4.3 mmol/L (3.5-5.1); SODIUM SERUM 130 mmol/L (136-145)
[2019-10-26 09:39] LABS: ALKALINE PHOSPHATASE 73 U/L (46-116); ALT/SGPT 21 U/L (14-59); AST/SGOT 16 U/L (15-37); BILIRUBIN TOTAL 0.48 mg/dL (0.20-1.00); LIPASE 49 IU/L (73-393); TOTAL PROTEIN, SERUM 6.8 g/dL (6.4-8.2)
[2019-10-26 09:49] LABS: UA SPECIFIC GRAVITY <=1.005 (1.005-1.035); microscopic required? YES; urine erythrocyte TRACE (NEGATIVE)
[2019-10-26 09:50] LABS: ALBUMIN 3.2 g/dL (3.4-5.0)
[2019-10-26 13:19] LABS: CHOLESTEROL/HDL RATIO 2.6
[2019-10-26 13:21] VITALS: BP 129/73
[2019-10-26 17:32] VITALS: BP 102/64
[2019-10-26 22:06] VITALS: BP 120/73
[2019-10-27 06:02] VITALS: BP 128/78
[2019-10-27 06:27] LABS: CALCIUM 7.7 mg/dL (8.5-10.1); CARBON DIOXIDE 23.9 mmol/L (21-32); CHLORIDE SERUM 101 mmol/L (98-107); CREATININE SERUM 0.6 mg/dL (0.6-1.0); GFR1 > 60 mL/min; GLUCOSE SERUM 87 mg/dL (74-106); MAGNESIUM 1.9 mg/dL (1.8-2.4); PHOSPHOROUS 1.9 mg/dL (2.5-4.9); POTASSIUM SERUM 3.3 mmol/L (3.5-5.1); SODIUM SERUM 135 mmol/L (136-145)
[2019-10-27 07:07] LABS: BASOPHIL % 0.3 % (0-2); PLATELET COUNT 243 x10^3mcL (130-400); RED CELL DISTRIBUTION WIDTH 13.1 % (11.5-14.5)
[2019-10-27 08:14] VITALS: BP 127/74
[2019-10-27 13:20] VITALS: BP 112/64
[2019-10-27 13:34] VITALS: BP 112/64
[2019-10-27 17:09] VITALS: BP 97/68
[2019-10-27 20:23] VITALS: BP 110/66
[2019-10-28 05:39] VITALS: BP 102/72
[2019-10-28 07:55] LABS: BASOPHIL % 0.3 % (0-2); PLATELET COUNT 247 x10^3mcL (130-400); RED CELL DISTRIBUTION WIDTH 13.6 % (11.5-14.5)
[2019-10-28 08:06] LABS: CALCIUM 7.6 mg/dL (8.5-10.1); CARBON DIOXIDE 22.3 mmol/L (21-32); CHLORIDE SERUM 106 mmol/L (98-107); CREATININE SERUM 0.4 mg/dL (0.6-1.0); GFR1 > 60 mL/min; PHOSPHOROUS 1.5 mg/dL (2.5-4.9); POTASSIUM SERUM 4.8 mmol/L (3.5-5.1); SODIUM SERUM 139 mmol/L (136-145)
[2019-10-28 08:15] LABS: GLUCOSE SERUM 51 mg/dL (74-106)
[2019-10-28 08:59] VITALS: BP 123/70
[2019-10-28 17:45] VITALS: BP 112/73
[2019-10-28 21:40] VITALS: BP 127/63
[2019-10-29 05:56] VITALS: BP 128/78
[2019-10-29 07:08] LABS: BASOPHIL % 0.4 % (0-2); PLATELET COUNT 330 x10^3mcL (130-400); RED CELL DISTRIBUTION WIDTH 13.6 % (11.5-14.5)
[2019-10-29 07:11] LABS: CALCIUM 7.9 mg/dL (8.5-10.1); CARBON DIOXIDE 27.2 mmol/L (21-32); CHLORIDE SERUM 107 mmol/L (98-107); CREATININE SERUM 0.5 mg/dL (0.6-1.0); GFR1 > 60 mL/min; GLUCOSE SERUM 91 mg/dL (74-106); MAGNESIUM 1.8 mg/dL (1.8-2.4); PHOSPHOROUS 1.8 mg/dL (2.5-4.9); POTASSIUM SERUM 3.6 mmol/L (3.5-5.1); SODIUM SERUM 141 mmol/L (136-145)
[2019-10-29 09:08] VITALS: BP 115/63
[2019-10-29 12:44] VITALS: BP 117/84
[2019-10-29 17:46] VITALS: BP 143/81
[2019-10-29 21:08] VITALS: BP 150/70
[2019-10-30 05:53] VITALS: BP 133/84
[2019-10-30 07:02] LABS: BASOPHIL % 0.6 % (0-2); PLATELET COUNT 330 x10^3mcL (130-400); RED CELL DISTRIBUTION WIDTH 13.6 % (11.5-14.5)
[2019-10-30 07:07] LABS: CARBON DIOXIDE 32.1 mmol/L (21-32); CHLORIDE SERUM 105 mmol/L (98-107); CREATININE SERUM 0.5 mg/dL (0.6-1.0); GFR1 > 60 mL/min; GLUCOSE SERUM 77 mg/dL (74-106); POTASSIUM SERUM 3.5 mmol/L (3.5-5.1); SODIUM SERUM 141 mmol/L (136-145)
[2019-10-30 09:09] VITALS: BP 129/75
[2019-10-30] MEDS ORDERED: LIPI20 PO (12:12)
[2019-10-30] MEDS ORDERED: LEVAQUIN500 M1 PO (12:13)
[2019-10-30] MEDS ORDERED: FLA500 PO (12:14)
[2019-10-30 12:38] VITALS: BP 129/75
== END 2019-10-30 14:13 | disposition home or self-care (01) | DRG 244 ==
LOC: ED 07:33 → MU 10:38
PROVIDERS: Emergency Medicine; Family Medicine; ADMIT Internal Medicine; ATTEND Internal Medicine
DX: K57.30 Diverticulosis of large intestine without perforation or abscess without bleeding (principal); E44.1 Mild protein-calorie malnutrition; K52.9 Noninfective gastroenteritis and colitis, unspecified; E87.1 Hypo-osmolality and hyponatremia; F17.210 Nicotine dependence, cigarettes, uncomplicated; F31.9 Bipolar disorder, unspecified; I10 Essential (primary) hypertension; E87.6 Hypokalemia; E83.39 Other disorders of phosphorus metabolism; J44.9 Chronic obstructive pulmonary disease, unspecified; I25.2 Old myocardial infarction; G89.29 Other chronic pain; E86.0 Dehydration; M54.9 Dorsalgia, unspecified; Z88.2 Allergy status to sulfonamides; Z88.8 Allergy status to other drugs, medicaments and biological substances; Z90.49 Acquired absence of other specified parts of digestive tract; Z82.49 Family history of ischemic heart disease and other diseases of the circulatory system; Z80.9 Family history of malignant neoplasm, unspecified; Z56.0 Unemployment, unspecified; Z68.23 Body mass index [BMI] 23.0-23.9, adult; Z79.899 Other long term (current) drug therapy
CPT/HCPCS: 83880; 87046; 87046-59; G0378; J1885; J1956; J2270; J2405; J2543; J3490; J3535; J7030; Q9967